=== PATIENT | male | born 1965 | race Caucasian/White ===

== ENCOUNTER 2016-03-27 03:23 | Inpatient (IN) | payer MEDICARE ==
[~2016-03-27 03:23] MED LIST: BUSP10 PO; CARV6.25 PO; CHLO10 PO; CLOP75 PO; LISI10 PO; PRAV40 PO; PROT40TA PO; SIMV20 PO; TRAZ100T4 PO; WELL150T PO
[2016-03-27 03:45] VITALS: BP 148/78; PULSE 80; RESP 16; TEMP 98.7; O2SAT 98
[2016-03-27] MEDS ORDERED: SODIUM CHLORIDE 0.9% FLUSH 5 ML FLUSH IVF PRN (03:45)
[2016-03-27 03:50] LABS: AUTOMATED NEUTROPHIL # 2.9 TH/MM3 (1.8-7.7); BASOPHIL # 0.1 TH/MM3 (0-0.2); BASOPHIL % 0.9 % (0.0-2.0); EOSINOPHIL # 0.1 TH/MM3 (0-0.4); EOSINOPHIL % 2.1 % (0.0-4.0); HEMATOCRIT 38.5 % (39.0-51.0); HEMO FLAGS DIFF FINAL; LYMPH % 33.4 % (9.0-44.0); LYMPHOCYTE # 1.8 TH/MM3 (1.0-4.8); MEAN CELL VOLUME 100.9 FL (80.0-100.0); MEAN CORPUSCULAR HEMOGLOBIN 34.8 PG (27.0-34.0); MEAN CORPUSCULAR HGB CONC 34.5 % (32.0-36.0); MONO % 10.5 % (0.0-8.0); NEUT % 53.1 % (16.0-70.0); PLATELET COUNT 204 TH/MM3 (150-450); RED BLOOD COUNT 3.82 MIL/MM3 (4.50-5.90); RED CELL DISTRIBUTION WIDTH 15.8 % (11.6-17.2); WHITE BLOOD COUNT 5.5 TH/MM3 (4.0-11.0)
[2016-03-27 04:00] VITALS: BP 148/78; PULSE 78; RESP 22; O2SAT 98
[2016-03-27 04:03] LABS: APTT (PATIENT) 23.6 SEC (24.3-30.1); INTERNATIONAL NORMALIZED RATIO 0.9 RATIO; PROTHROMBIN TIME - PATIENT 10.2 SEC (9.8-11.6)
--- NOTE | 2016-03-27 04:10 | RADRPT ---
EXAM DATE/TIME: 03/27/2016 03:48 [place] COMPARISON: CHEST SINGLE AP, March 24, 2015, 17:20. INDICATIONS : Chest pain. MEDICAL HISTORY : Cardiovascular disease. SURGICAL HISTORY : CABG. Pacemaker. ENCOUNTER: Initial ACUITY: 1 day PAIN SCORE: Non-responsive. LOCATION: Bilateral chest FINDINGS: No infiltrate, effusion or pneumothorax demonstrated. Heart size stable, upper limits of normal. Karen ent has had previous median sternotomy. Cardiac pacer/defibrillator again noted. CONCLUSION: No evidence of acute cardiopulmonary disease. Rafa Hylton MD on March 27, 2016 at 4:08 Board Certified Radiologist. This report was verified electronically.
[2016-03-27 04:33] VITALS: BP 92/84; PULSE 78; RESP 20
[2016-03-27 04:39] LABS: ALKALINE PHOSPHATASE 68 U/L (45-117); ALT (GPT) 53 U/L (12-78); ANION GAP 10 MEQ/L (5-15); AST (GOT) 72 U/L (15-37); BICARBONATE 22.1 MEQ/L (21.0-32.0); BLOOD UREA NITROGEN 9 MG/DL (7-18); CHLORIDE 110 MEQ/L (98-107); CREATINE KINASE 863 U/L (39-308); GLOMERULAR FILTRATION RATE 103 ML/MIN (>89); MAGNESIUM 2.2 MG/DL (1.5-2.5); SODIUM (NA) 142 MEQ/L (136-145); TOTAL BILIRUBIN ADULT 0.4 MG/DL (0.2-1.0)
[2016-03-27 04:44] LABS: POTASSIUM 4.3 MEQ/L (3.5-5.1)
[2016-03-27 04:56] LABS: CKMB 6.5 NG/ML (0.5-3.6)
[2016-03-27 05:00] VITALS: BP 88/51; PULSE 76; RESP 22; O2SAT 96
[2016-03-27 06:00] VITALS: BP 96/56; PULSE 76; RESP 21; O2SAT 96
[2016-03-27] MEDS ORDERED: SODIUM CHLOR 0.9% 1000 ML INJ 1,000 ML IV SCH (06:03)
[2016-03-27] MEDS ORDERED: LORazepam 1 MG TAB PO PRN (06:15)
[2016-03-27] MEDS ORDERED: LORazepam 2 MG TAB PO PRN (06:15)
[2016-03-27] MEDS ORDERED: HALOPERIDOL LACTATE 5 MG/ML AMP IM PRN (06:15)
[2016-03-27] MEDS ORDERED: ONDANSETRON HCL 4 MG/2 ML VIAL IVP PRN (06:15)
[2016-03-27] MEDS ORDERED: SODIUM CHLORIDE 0.9% FLUSH 5 ML FLUSH FLUSH PRN (06:15)
[2016-03-27] MEDS ORDERED: SODIUM CHLORIDE 0.9% FLUSH 5 ML FLUSH IV FLUSH PRN (06:15)
[2016-03-27] MEDS ORDERED: BISACODYL 10 MG SUPP PR PRN (06:15)
[2016-03-27] MEDS ORDERED: THIAMINE INJ 100 MG in SODIUM CHLORIDE 0.9% INJ 100 ML IV SCH ×5 (06:15→06:30)
[2016-03-27] MEDS ORDERED: LORazepam 2 MG/ML VIAL IV PUSH PRN ×4 (06:15)
[2016-03-27] MEDS ORDERED: MORPHINE SULFATE 4 MG/ML INJ IV PRN (06:15)
[2016-03-27] MEDS ORDERED: FLUMAZENIL 0.5 MG/5 ML VIAL IV PUSH PRN (06:15)
[2016-03-27] MEDS ORDERED: ACETAMINOPHEN/HYDROcodone 325 MG/5 MG TAB PO PRN (06:15)
[2016-03-27] MEDS ORDERED: ACETAMINOPHEN 325 MG TAB PO PRN (06:15)
[2016-03-27] MEDS ORDERED: THIAMINE INJ 100 MG in SODIUM CHLORIDE 0.9% INJ 100 ML IV ONE (06:20)
[2016-03-27 07:00] VITALS: BP 125/68; PULSE 80; RESP 24; O2SAT 97
[2016-03-27] MEDS ORDERED: MULTIVITAMIN INJ 10 ML, FOLIC ACID INJ 1 MG in SODIUM CHLORID 0.9% 500 ML INJ 500 ML IV SCH (08:00)
--- NOTE | 2016-03-27 08:44 | PD ---
HPI Chief Complaint: Chest Pain Time Seen by Provider: 03:31 Travel History International Travel<30 days: No Contact w/Intl Traveler<30days: No Traveled to known affect area: No History of Present Illness HPI Patient is a 51 year old male who comes in complaining of chest pain. He says it started around noon today. He says it is a stabbing pain to the left side of his chest. He has history of CABG, implanted defibrillator with EF of 25%. He admits to drinking today. He says he had some nausea and has vomited. He denies SOB. PFSH Past Medical History Hx Anticoagulant Therapy: Yes (PLAVIX) ADD: Yes Arthritis: No Asthma: No Blood Disorders: No Anxiety: Yes Depression: Yes Heart Rhythm Problems: Yes ( ) Cancer: No Cardiac Catheterization: Yes Cardiovascular Problems: Yes (ICD IMPLANTED 2008, CABG, STENT PLACEMENT ) High Cholesterol: Yes Chest Pain: Yes Congestive Heart Failure: No COPD: No Cerebrovascular Accident: No Coronary Artery Disease: Yes Diabetes: No Diminished Hearing: No Endocrine: No Gastrointestinal Disorders: Yes (GASTRITIS, DUODENITIS,ESOPHAGITIS) GERD: Yes Genitourinary: No Headaches: No Hepatitis: No Hypertension: Yes Immune Disorder: No Implanted Vascular Access Dvce: Yes Musculoskeletal: No Neurologic: No Psychiatric: Yes Reproductive: No Respiratory: No Immunizations Current: Yes Migraines: No Myocardial Infarction: Yes Seizures: Yes (per pt he has a seizure a year ago.) Sleep Apnea: No Thyroid Disease: No Ulcer: No Past Surgical History Appendectomy: Yes Cardiac Surgery: Yes (PACEMAKER/defib) Cholecystectomy: No Coronary Artery Bypass Graft: Yes (02/05/14) Coronary Stent: Yes (X1) Endocrine Surgery: No Eye Surgery: No Neurologic Surgery: No Pacemaker: Yes Tonsillectomy: Yes Other Surgery: Yes (appy,tonsils) Social History Alcohol Use: Yes (over a 5th everyday) Tobacco Use: Yes (2 PPD) Substance Use: No Allergies-Medications (Allergen,Severity, Reaction): Coded Allergies: Nitroglycerin (Verified Adverse Reaction, Severe, 04/22/15) PT STATES SEVERE ALLERGY... HEADACHE 01/18/2014: per order dr watt allergy status changed to adverse reaction. pt states only reaction is severe headache Reported Meds & Prescriptions Reported Meds & Active Scripts Active Librium 10 mg Cap (Chlordiazepoxide) 10 Mg Cap 10 Mg PO Q6 5 Days Wellbutrin-Sr (Bupropion HCl) 150 Mg Tabcr 300 Mg PO DAILY 30 Days Desyrel 100 Mg Tab (Trazodone Hcl) 100 Mg Tab 100 Mg PO HS Pravastatin Sodium 40 Mg Tab 40 Mg PO HS 30 Days Protonix (Pantoprazole Sodium) 40 Mg Tab 40 Mg PO DAILY 30 Days Prinivil 10 mg (Lisinopril) 10 Mg Tab 10 Mg PO DAILY 30 Days Plavix (Clopidogrel Bisulfate) 75 Mg Tab 75 Mg PO DAILY 30 Days Coreg 6.25 mg (Carvedilol) 6.25 Mg Tab 6.25 Mg PO BID 30 Days Buspar 10 mg Tab (Buspirone HCl) 10 Mg Tab 10 Mg PO Q12HR 30 Days Simvastatin 20 mg (Simvastatin) 20 Mg Tab 20 Mg PO HS Review of Systems Except as stated in HPI: all other systems reviewed are Neg General / Constitutional: No: Fever, Chills HENT: No: Headaches, Lightheadedness Cardiovascular: Positive: Chest Pain or Discomfort Respiratory: No: Shortness of Breath Gastrointestinal: Positive: Nausea, Vomiting, No: Abdominal Pain Musculoskeletal: No: Edema, Pain Skin: No Change in Pigmentation Neurologic: No: Weakness, Dizziness Physical Exam Narrative GENERAL: Awake and alert, in no acute distress, AOB SKIN: Warm and dry. HEAD: Atraumatic. Normocephalic. EYES: Pupils equal and round. No scleral icterus. ENT: Mucous membranes pink and moist. NECK: Trachea midline. No JVD. CARDIOVASCULAR: Regular rate and rhythm. RESPIRATORY: No accessory muscle use. Clear to auscultation. Breath sounds equal bilaterally. GASTROINTESTINAL: Abdomen soft, non-tender, nondistended. MUSCULOSKELETAL: Extremities without clubbing, cyanosis, or edema. No obvious deformities. NEUROLOGICAL: Awake and alert. No obvious cranial nerve deficits. Motor grossly within normal limits. Five out of 5 muscle strength in the arms and legs. Normal speech. Data Data Last Documented VS Vital Signs Date Time Temp Pulse Resp B/P Pulse Ox O2 Delivery O2 Flow Rate FiO2 03/27/16 05:00 76 22 88/51 96 03/27/16 03:45 98.7 Orders Ckmb (Isoenzyme) Profile (03/27/16 03:31) Complete Blood Count With Diff (03/27/16 03:31) Comprehensive Metabolic Panel (03/27/16 03:31) Magnesium (Mg) (03/27/16 03:31) Prothrombin Time / Inr (Pt) (03/27/16 03:31) Act Partial Throm Time (Ptt) (03/27/16 03:31) Troponin I (03/27/16 03:31) Chest, Single Ap (03/27/16 03:31) Ecg Monitoring (03/27/16 03:31) Bilateral Bp Monitoring (03/27/16 03:31) Iv Access Insert/Monitor (03/27/16 03:31) Oximetry (03/27/16 03:31) Oxygen Administration (03/27/16 03:31) Sodium Chloride 0.9% Flush (Ns Flush) (03/27/16 03:45) Alcohol (Ethanol) (03/27/16 03:31) CKMB (03/27/16 03:30) CKMB% (03/27/16 03:30) Admit Order (Ed Use Only) (03/27/16 ) Consult Cardiology (03/27/16 ) Labs Laboratory Tests Test 03/27/16 03:30 White Blood Count 5.5 TH/MM3 Red Blood Count 3.82 MIL/MM3 Hemoglobin 13.3 GM/DL Hematocrit 38.5 % Mean Corpuscular Volume 100.9 FL Mean Corpuscular Hemoglobin 34.8 PG Mean Corpuscular Hemoglobin 34.5 % Concent Red Cell Distribution Width 15.8 % Platelet Count 204 TH/MM3 Mean Platelet Volume 7.3 FL Neutrophils (%) (Auto) 53.1 % Lymphocytes (%) (Auto) 33.4 % Monocytes (%) (Auto) 10.5 % Eosinophils (%) (Auto) 2.1 % Basophils (%) (Auto) 0.9 % Neutrophils # (Auto) 2.9 TH/MM3 Lymphocytes # (Auto) 1.8 TH/MM3 Monocytes # (Auto) 0.6 TH/MM3 Eosinophils # (Auto) 0.1 TH/MM3 Basophils # (Auto) 0.1 TH/MM3 CBC Comment DIFF FINAL Differential Comment Prothrombin Time 10.2 SEC Prothromb Time International 0.9 RATIO Ratio Activated Partial 23.6 SEC Thromboplast Time Sodium Level 142 MEQ/L Potassium Level 4.3 MEQ/L Chloride Level 110 MEQ/L Carbon Dioxide Level 22.1 MEQ/L Anion Gap 10 MEQ/L Blood Urea Nitrogen 9 MG/DL Creatinine 0.79 MG/DL Estimat Glomerular Filtration 103 ML/MIN Rate Random Glucose 92 MG/DL Calcium Level 8.2 MG/DL Magnesium Level 2.2 MG/DL Total Bilirubin 0.4 MG/DL Aspartate Amino Transf 72 U/L (AST/SGOT) Alanine Aminotransferase 53 U/L (ALT/SGPT) Alkaline Phosphatase 68 U/L Total Creatine Kinase 863 U/L Creatine Kinase MB 6.5 NG/ML Creatine Kinase MB % 0.8 % Troponin I 0.07 NG/ML Total Protein 7.2 GM/DL Albumin 3.4 GM/DL Ethyl Alcohol Level 330 MG/DL [facility] Medical Decision Making Medical Screen Exam Complete: Yes Emergency Medical Condition: Yes Medical Record Reviewed: Yes Interpretation(s) ECG shows NSR, no ST elevation or depression Differential Diagnosis Intoxication vs ACS vs NSTEMI vs STEMI Narrative Course Patient is a 51 year old male who comes in intoxicated, complaining of chest pain. Exam shows patient is clearly intoxicated, no other abnormalities. IV established, patient connected to the lunchroom monitor. Labs sent show a troponin of 0.07. alcohol level is 330. Patient was given aspirin my EMS. Patient had two episodes of V-tach while in the ED. Each last about 5-10 seconds and converted to sinus rhythm without intervention. His defibrillator did not fire at the time. Heparin held for now. I spoke with Dr. Zavaleta of cardiology who agrees with the plan of holding heparin for now. Patient admitted for further management. Diagnosis Primary Impression: NSTEMI (non-ST elevated myocardial infarction) Additional Impression: Alcohol abuse Admitting Information Admitting Physician Requests: Admit Nimo Denson MD Mar 27, 2016 08:44
[2016-03-27] MEDS ORDERED: PANTOPRAZOLE SOD 40 MG DELAYED RELEASE TAB PO SCH (09:00)
[2016-03-27] MEDS ORDERED: SODIUM CHLORIDE 0.9% FLUSH 5 ML FLUSH IV FLUSH SCH (09:00)
[2016-03-27] MEDS ORDERED: LISINOPRIL 10 MG TAB PO SCH (09:00)
[2016-03-27] MEDS ORDERED: SODIUM CHLORIDE 0.9% FLUSH 5 ML FLUSH FLUSH SCH (09:00)
[2016-03-27] MEDS ORDERED: CARVEDILOL 6.25 MG TAB PO SCH (09:00)
[2016-03-27] MEDS ORDERED: ASPIRIN EC 81 MG TABEC PO SCH (09:00)
--- NOTE | 2016-03-27 13:01 | EKG ---
Date Performed: 03/27/2016 Time Performed: 03:23:40 PTAGE: 51 years EKG: Sinus rhythm MARKED LEFT AXIS DEVIATION SEPTAL MYOCARDIAL INFARCTION LATERAL MYOCARDIAL INFARCTION ABNORMAL ECG C ompared to prior tracing no significant change INTERPRETATION BASED ON A DEFAULT AGE OF 40 YEARS PREVIOUS TRACING : 04/19/2015 09.51 DOCTOR: Francis Zavaleta Interpretating Date/Time 03/27/2016 12:56:39
[2016-03-27] MEDS ORDERED: METO100T PO (16:38)
[2016-03-27] MEDS ORDERED: MOBI15TA PO (16:38)
[2016-03-27] MEDS ORDERED: AMIO200T PO (16:38)
[2016-03-27] MEDS ORDERED: ATOR10TA15 PO (16:38)
[2016-03-27] MEDS ORDERED: LISI-519 PO (16:38)
[2016-03-27] MEDS ORDERED: CLOP75TA PO (16:38)
[2016-03-27] MEDS ORDERED: TRAZ150T75 PO (16:38)
[2016-03-27] MEDS ORDERED: OMEP20TA PO (16:38)
[2016-03-27] MEDS ORDERED: PRAVASTATIN SOD 40 MG TAB PO SCH (21:00)
[2016-03-28] MEDS ORDERED: THIAMINE INJ 100 MG in SODIUM CHLORIDE 0.9% INJ 100 ML IV SCH (06:00)
[2016-03-30] MEDS ORDERED: THIAMINE HCL 100 MG TAB PO SCH (09:00)
== END 2016-03-27 08:50 | disposition left against medical advice (07) | DRG 281 ==
LOC: NEPC 03:23 → NEDA 05:52
PROVIDERS: ADMIT Hospitalist; ATTEND Hospitalist
DX: I21.4 Non-ST elevation (NSTEMI) myocardial infarction (principal); I47.2 Ventricular tachycardia; I10 Essential (primary) hypertension; I25.10 Atherosclerotic heart disease of native coronary artery without angina pectoris; F10.129 Alcohol abuse with intoxication, unspecified; I25.2 Old myocardial infarction; E78.00 Pure hypercholesterolemia, unspecified; F17.210 Nicotine dependence, cigarettes, uncomplicated; Y90.8 Blood alcohol level of 240 mg/100 ml or more; Z95.1 Presence of aortocoronary bypass graft; Z95.810 Presence of automatic (implantable) cardiac defibrillator; K21.9 Gastro-esophageal reflux disease without esophagitis
CPT/HCPCS: 71010; 80053; 80320; 82550; 82552; 83735; 84484; 85025; 85610; 85730; 93005; 99285; J2060; J2270; J3411; J7030; J7040

== ENCOUNTER 2016-03-27 16:11 | Emergency (ER) | payer MEDICARE ==
[2016-03-27 16:13] VITALS: BP 155/80; PULSE 88; RESP 20; TEMP 98; O2SAT 95
[2016-03-27] MEDS ORDERED: METO100T PO (16:38)
[2016-03-27] MEDS ORDERED: MOBI15TA PO (16:38)
[2016-03-27] MEDS ORDERED: TRAZ150T75 PO (16:38)
[2016-03-27] MEDS ORDERED: ATOR10TA15 PO (16:38)
[2016-03-27] MEDS ORDERED: LISI-519 PO (16:38)
[2016-03-27] MEDS ORDERED: AMIO200T PO (16:38)
[2016-03-27] MEDS ORDERED: CLOP75TA PO (16:38)
[2016-03-27] MEDS ORDERED: OMEP20TA PO (16:38)
[2016-03-27 16:40] VITALS: O2SAT 99
[2016-03-27] MEDS ORDERED: SODIUM CHLORIDE 0.9% FLUSH 5 ML FLUSH IVF PRN (16:45)
[2016-03-27] MEDS ORDERED: ASPIRIN 325 MG TAB PO ONE (16:45)
[2016-03-27] MEDS ORDERED: ACETAMINOPHEN 1000 MG/100 ML VIAL IV ONE (17:00)
--- NOTE | 2016-03-27 17:12 | PD ---
HPI Chief Complaint: Chest Pain Time Seen by Provider: 17:03 Travel History International Travel<30 days: No Contact w/Intl Traveler<30days: No Traveled to known affect area: No History of Present Illness HPI 51-year-old male that presents to the ED for evaluation of chest pain. Patient reports that he has chest pain since this morning. Patient actually was seen at this facility early this morning was admitted for a NSTEMI. Patient was found to have episodes of SVT as well as elevated troponin. Patient does have a history of significant heart disease including CABG and he also has an ICD defibrillator. Patient reports that the ICD device has been fired on him multiple times. The patient apparently left earlier this morning from this facility secondary to what appears to be agitation secondary to not getting food and possibly narcotics. Patient had to be escorted out of the facility as he was increasingly aggressive towards staff. Apparently patient also was drinking alcohol in the hospital room. Patient apparently went to the [facility] in [facility] and each and he went to really tell us why he came here after being seen there but it appears that he probably left AMA for similar reasons. he was brought here via [facility] and given morphine. Patient was given an aspirin today. Patient states that "i take blood thinners". Patient denies any shortness of breath. Per patient the chest pain is severe. Patient reports that the pain is 10 out of 10, sharp. When I went first into the room patient tells me that all he wants is something for pain. Pain does not radiate. Pain stays mainly on the chest. She does have an allergy to nitroglycerin. He does have a significant history of psychiatric illness including alcohol intoxication and abuse. Of note patient does appear to be very intoxicated and history somewhat limited because of this. Patient continues to request multiple times for pain medication and food and drink. PFSH Past Medical History Hx Anticoagulant Therapy: Yes (PLAVIX) ADD: Yes Arthritis: No Asthma: No Blood Disorders: No Anxiety: Yes Depression: Yes Heart Rhythm Problems: Yes ( ) Cancer: No Cardiac Catheterization: Yes Cardiovascular Problems: Yes High Cholesterol: Yes Chest Pain: Yes Congestive Heart Failure: No COPD: No Cerebrovascular Accident: No Coronary Artery Disease: Yes Diabetes: No Diminished Hearing: No Endocrine: No Gastrointestinal Disorders: Yes (GASTRITIS, DUODENITIS,ESOPHAGITIS) GERD: Yes Genitourinary: No Headaches: No Hepatitis: No Hypertension: Yes Immune Disorder: No Implanted Vascular Access Dvce: Yes Musculoskeletal: No Neurologic: No Psychiatric: Yes Reproductive: No Respiratory: No Immunizations Current: Yes Migraines: No Myocardial Infarction: Yes Seizures: Yes (per pt he has a seizure a year ago.) Sleep Apnea: No Thyroid Disease: No Ulcer: No Tetanus Vaccination: < 5 Years Past Surgical History Appendectomy: Yes Cardiac Surgery: Yes (PACEMAKER/defib) Cholecystectomy: No Coronary Artery Bypass Graft: Yes (02/05/14) Coronary Stent: Yes (X1) Endocrine Surgery: No Eye Surgery: No Neurologic Surgery: No Pacemaker: Yes Tonsillectomy: Yes Other Surgery: Yes (appy,tonsils) Social History Alcohol Use: Yes (over a 5th everyday) Tobacco Use: Yes (2 PPD) Substance Use: No Allergies-Medications (Allergen,Severity, Reaction): Coded Allergies: Nitroglycerin (Verified Adverse Reaction, Severe, 03/27/16) PT STATES SEVERE ALLERGY... HEADACHE 01/18/2014: per order dr watt allergy status changed to adverse reaction. pt states only reaction is severe headache Reported Meds & Prescriptions Reported Meds & Active Scripts Active Reported Clopidogrel (Clopidogrel Bisulfate) 75 Mg Tab 75 Mg PO DAILY Lisinopril 5 Mg Tab 5 Mg PO DAILY Amiodarone (Amiodarone HCl) 200 Mg Tab 200 Mg PO DAILY Omeprazole 20 Mg Tab 20 Mg PO DAILY Mobic (Meloxicam) 15 Mg Tab 15 Mg PO DAILY Trazodone (Trazodone HCl) 150 Mg Tab 150 Mg PO HS Atorvastatin (Atorvastatin Calcium) 10 Mg Tab 10 Mg PO HS Metoprolol Tartrate 100 Mg Tab 100 Mg PO BID Review of Systems ROS Limitations: Intoxication General / Constitutional: No: Fever, Chills, Weight Gain, Weight Loss, Other Eyes: No: Diploplia, Blurred Vision, Photophobia, Drainage, Redness, Foreign Body Sensation, Pain, Tearing, Blind Spots, Visual changes, Blindness, Other HENT: No: Headaches, Vertigo, Lightheadedness, Sore Throat, Rhinitis, Rhinorrhea, Congestion, Nosebleed, Neck Stiffness, Neck Pain, Masses, Gingival Bleeding, Dental Difficulties, Ear Discharge, Earache, Other Cardiovascular: Positive: Chest Pain or Discomfort, Palpitations, Irregular Rhythm, Tachycardia, No: Diaphoresis, Syncope, Dyspnea on exertion, Varicosities, Edema, Cyanosis, Varicosities, Phlebitis, Claudication, Other Respiratory: No: Cough, Shortness of Breath, Wheezing, Sneezing, Orthopnea, Hemoptysis, Stridor, Night Sweats, Pleuritic Pain, Other Gastrointestinal: No: Nausea, Vomiting, Diarrhea, Abdominal Pain, Hematemesis, Hematochezia, Constipation, Changes in Bowel Habits, Indigestion, Dysphagia, Loss of Appetite, Other Genitourinary: No: Urgency, Frequency, Dysuria, Nocturia, Hematuria, Decreased Urinary Output, Oliguria, Hesitancy, Dribbling, Incontinence, Pelvic Pain, Flank Pain, Dyspareunia, Discharge, Dysmenorrhea, Menorrhagia, Metorrhagia, Vaginal Bleeding, Other Musculoskeletal: No: Myalgias, Arthralgias, Limited ROM, Weakness, Cramping, Edema, Pain, Atrophy, Other Skin: No Rash, No Itching, No Dryness, No Lumps, No Hives, No Change in Pigmentation, No Change in nails, No Alopecia, No Lesions, No Breast Lumps, No Breast Tenderness, No Breast Swelling, No Other Neurologic: No: Weakness, Dizziness, Syncope, Focal Abnormalities, Coordination Problem, Tremor, Ataxia, Headache, Change in Mentation, Slurred Speech, Paresthesia, Incontinence, Seizures, Sensory Disturbance, Other Psychiatric: No: Anxiety, Depression, Suicidal Ideations, Disorder of Thought, Mood Disorder, Substance Abuse, Homicidal Ideation, Other Endocrine: No: Heat Intolerance, Cold Intolerance, Polyuria, Polydipsia, Other Physical Exam Exam Limitations: Intoxication Narrative GENERAL: SKIN: Warm and dry. HEAD: Atraumatic. Normocephalic. EYES: Pupils equal and round. No scleral icterus. No injection or drainage. ENT: No nasal bleeding or discharge. Mucous membranes pink and moist. Tongue is midline. No uvula deviation. NECK: Trachea midline. No JVD. CARDIOVASCULAR: Regular rate and rhythm. No murmurs, S3, S4. patient has surgical scars noted on the chest. RESPIRATORY: No accessory muscle use. Clear to auscultation. Breath sounds equal bilaterally. GASTROINTESTINAL: Abdomen soft, non-tender, nondistended. Hepatic and splenic margins not palpable. MUSCULOSKELETAL: Extremities without clubbing, cyanosis, or edema. No obvious deformities. Full range of motion of the upper and lower extremities bilaterally. 2+ pulses bilaterally. NEUROLOGICAL: Awake and alert. No obvious cranial nerve deficits. Motor grossly within normal limits. Five out of 5 muscle strength in the arms and legs. Normal speech. PSYCHIATRIC: Very intoxicated mood and affect; insight and judgment questionable Data Data Last Documented VS Vital Signs Date Time Temp Pulse Resp B/P Pulse Ox O2 Delivery O2 Flow Rate FiO2 03/27/16 16:40 99 03/27/16 16:40 Nasal Cannula 2 03/27/16 16:13 98.0 88 20 155/80 Orders Electrocardiogram (03/27/16 16:34) Ckmb (Isoenzyme) Profile (03/27/16 16:34) Troponin I (03/27/16 16:34) Ecg Monitoring (03/27/16 16:34) Bilateral Bp Monitoring (03/27/16 16:34) Iv Access Insert/Monitor (03/27/16 16:34) Oximetry (03/27/16 16:34) Oxygen Administration (03/27/16 16:34) Aspirin (Aspirin) (03/27/16 16:45) Sodium Chloride 0.9% Flush (Ns Flush) (03/27/16 16:45) Acetaminophen Inj (Ofirmev Inj) (03/27/16 17:00) Alcohol (Ethanol) (03/27/16 17:16) CKMB (03/27/16 16:45) CKMB% (03/27/16 16:45) Labs Laboratory Tests Test 03/27/16 16:45 Total Creatine Kinase 793 U/L Creatine Kinase MB 6.7 NG/ML Creatine Kinase MB % 0.8 % Troponin I 0.11 NG/ML MDM Medical Decision Making Medical Screen Exam Complete: Yes Emergency Medical Condition: Yes Medical Record Reviewed: Yes Differential Diagnosis NSTEMI versus STEMI versus SVT versus chest pain versus atypical chest pain versus alcohol abuse Narrative Course 51-year-old male that presents to the ED for evaluation of chest pain. Patient was properly examined by me and was found to have signs and symptoms consistent with appears to be cardiac disease. Patient was just seen here this morning and had a positive troponin and SVT episodes when he was seen. Patient left because of agitation and because he did not get any pain medication and food. Patient's first question to me was if I can give him anything for pain. Patient specifically asked for narcotics. Patient does appear very intoxicated at this time and I do not feel comfortable giving patient any narcotic pain medication to further sedate the patient. I did inform him multiple times that we need to fix his heart first. He did not appear to agree with the answer but did allow us to do the workup for the chest pain including getting an IV, EKG and blood work. Patient already had aspirin today, so this was not given. EKG and troponin was ordered. Before blood work came back I was informed by ED nursing staff that patient was found to be drinking a bottle of vodka that had to be confiscated from him by security. Unfortunately patient became more agitated and became more demanding to staff. Security had to get involved. Patient was told that we will be happy to take care of his medical complain but he has to cooperate with us. He states that he does not want to do this so he left AMA. Unfortunately patient is capable of making decisions by me and my attending Dr. Preston. Patient understands that if he leaves before being treated properly he could or have severe disability. My attending was made aware of all this and agrees that we cannot force the patient to stay. AMA: The risks of leaving against medical advice without further evaluation treatment were discussed with the patient. These risks include cardiac dysfunction, cardiac dysrhythmia, possible heart attack, possible stroke or . The patient indicated understanding of these risks and appeared to have the capacity to make this decision. Diagnosis Primary Impression: NSTEMI (non-ST elevated myocardial infarction) Additional Impression: Alcohol abuse Med/Other Pt SpecificInfo: No Meds Exist/No RX given Disposition: 07 AGAINST MEDICAL ADVICE Condition: Toribio Diaz Mar 27, 2016 17:12
[2016-03-27 17:53] LABS: CKMB 6.7 NG/ML (0.5-3.6)
== END 2016-03-27 17:38 | disposition left against medical advice (07) ==
LOC: NEPE 16:11
DX: I21.4 Non-ST elevation (NSTEMI) myocardial infarction (principal); F10.129 Alcohol abuse with intoxication, unspecified; F17.200 Nicotine dependence, unspecified, uncomplicated; I25.10 Atherosclerotic heart disease of native coronary artery without angina pectoris; I10 Essential (primary) hypertension; Y90.8 Blood alcohol level of 240 mg/100 ml or more
CPT/HCPCS: 80320; 82550; 82552; 84484; 93005

== ENCOUNTER 2016-03-27 18:18 | Inpatient (IN) | payer MEDICARE ==
[~2016-03-27] VITALS: Ht 182.9 cm; Wt 123.9 kg
[~2016-03-27 18:18] MED LIST changes: +AMIO200T PO; +ATOR10TA15 PO; +CLOP75TA PO; +LISI-519 PO; +METO100T PO; +MOBI15TA PO; +OMEP20TA PO; +TRAZ150T75 PO
[2016-03-27 18:20] VITALS: BP 117/70; PULSE 82; RESP 20; TEMP 97.6; O2SAT 95
--- NOTE | 2016-03-27 19:27 | PD ---
HPI Chief Complaint: Chest Pain Time Seen by Provider: 19:10 Travel History International Travel<30 days: No Contact w/Intl Traveler<30days: No Traveled to known affect area: No History of Present Illness HPI The patient is a 51 year old male who presents to the [facility] emergency department with a history of reportedly having chest pain that is intermittently been present since early this morning. The patient was seen in this emergency department for evaluation at approximately 3 AM. The patient was admitted to the hospital for evaluation and treatment. The patient was noted at that time to have episodes of V. tach during that evaluation. The patient's troponin I at that time was 0.07 and the patient was noted to have an alcohol level [id number]. The patient was admitted to the medical service with a consultation to Dr. Zavaleta the newspaper clipper on-call. The patient reports that he travels for work and does not have a primary care physician or newspaper clipper. He reports that he has however been taking his medication as prescribed. He reports that he took 3 baby aspirin earlier today. He reports that he also took an aspirin today. He reports that he drinks as much alcohol as he can get a hold of on a daily basis. He reports he smokes a pack of cigarettes per day. The patient reports that he last had a heart catheterization without any specific intervention approximately a year ago. The patient reports that he has a history of coronary artery disease, cardiac arrhythmia, prior stent placement, coronary artery bypass grafting of 4 vessels in 2013. This is the patient's fourth evaluation in emergency department since onset of the pain. The patient repeatedly has left this facility as well as [facility] when he gets angry and agitated as he feels like his pain is not being adequately controlled and he is not getting food and drink immediately on arrival. The patient is difficult to obtain a history from as he is repeatedly having to be redirected during his conversation to answer the questions that I am asking. The patient refuses to tell me exactly how long this episode of chest pain is been going on. The patient denies having any diarrhea. He reports that he has not been eating or drinking well as he has had episodes of vomiting since . He denies having any acid reflux symptoms. He reports that he is on omeprazole for this. When asked how many times he has been vomiting he reports "a lot". PFSH Past Medical History Narrative Medical The patient's past medical history is significant for coronary artery disease, psychiatric disorder, arthritis, attention deficit disorder, cardiac arrhythmia with AICD placement in 2008, history of hyperlipidemia, history of gastritis, duodenitis and esophagitis on prior endoscopy, hypertension, history of seizure activity in the remote past. Hx Anticoagulant Therapy: Yes ADD: Yes Arthritis: No Asthma: No Blood Disorders: No Anxiety: Yes Depression: Yes Heart Rhythm Problems: Yes ( ) Cancer: No Cardiac Catheterization: Yes Cardiovascular Problems: Yes High Cholesterol: Yes Chest Pain: Yes Congestive Heart Failure: No COPD: No Cerebrovascular Accident: No Coronary Artery Disease: Yes Diabetes: No Diminished Hearing: No Endocrine: No Gastrointestinal Disorders: Yes (GASTRITIS, DUODENITIS,ESOPHAGITIS) GERD: Yes Genitourinary: No Headaches: No Hepatitis: No Hypertension: Yes Immune Disorder: No Implanted Vascular Access Dvce: Yes Musculoskeletal: No Neurologic: No Psychiatric: Yes Reproductive: No Respiratory: No Immunizations Current: Yes Migraines: No Myocardial Infarction: Yes Seizures: Yes (per pt he has a seizure a year ago.) Sleep Apnea: No Thyroid Disease: No Ulcer: No Tetanus Vaccination: < 5 Years Past Surgical History Narrative Surgical The patient's past surgical history is significant for pacemaker/defibrillator placement 2008, coronary artery bypass grafting of 4 vessels on February 05, 2014, history of coronary artery stenting times one, appendectomy, tonsillectomy. Appendectomy: Yes Cardiac Surgery: Yes (PACEMAKER/defib) Cholecystectomy: No Coronary Artery Bypass Graft: Yes (02/05/14) Coronary Stent: Yes (X1) Endocrine Surgery: No Eye Surgery: No Neurologic Surgery: No Pacemaker: Yes Tonsillectomy: Yes Other Surgery: Yes (appy,tonsils) Social History Alcohol Use: Yes (over a 5th everyday) Tobacco Use: Yes (2 PPD) Substance Use: No Allergies-Medications (Allergen,Severity, Reaction): Coded Allergies: Nitroglycerin (Verified Adverse Reaction, Severe, headache, 03/27/16) PT STATES SEVERE ALLERGY... HEADACHE 01/18/2014: per order dr watt allergy status changed to adverse reaction. pt states only reaction is severe headache Reported Meds & Prescriptions Reported Meds & Active Scripts Active Reported Clopidogrel (Clopidogrel Bisulfate) 75 Mg Tab 75 Mg PO DAILY Lisinopril 5 Mg Tab 5 Mg PO DAILY Amiodarone (Amiodarone HCl) 200 Mg Tab 200 Mg PO DAILY Omeprazole 20 Mg Tab 20 Mg PO DAILY Mobic (Meloxicam) 15 Mg Tab 15 Mg PO DAILY Trazodone (Trazodone HCl) 150 Mg Tab 150 Mg PO HS Atorvastatin (Atorvastatin Calcium) 10 Mg Tab 10 Mg PO HS Metoprolol Tartrate 100 Mg Tab 100 Mg PO BID Review of Systems Except as stated in HPI: all other systems reviewed are Neg General / Constitutional: No: Fever Eyes: No: Visual changes HENT: No: Headaches, Rhinorrhea, Congestion Cardiovascular: Positive: Chest Pain or Discomfort, Dyspnea on exertion Respiratory: Positive: Cough (chronic smokers related cough), Shortness of Breath Gastrointestinal: Positive: Nausea, Vomiting, No: Diarrhea, Abdominal Pain, Indigestion, Loss of Appetite Genitourinary: No: Dysuria Musculoskeletal: No: Pain Skin: No Rash Neurologic: No: Weakness, Focal Abnormalities, Coordination Problem, Change in Mentation, Slurred Speech, Sensory Disturbance Psychiatric: Positive: Anxiety, Depression, Mood Disorder, Substance Abuse, No : Suicidal Ideations, Homicidal Ideation Endocrine: No: Polydipsia Hematologic/Lymphatic: No: Easy Bruising Physical Exam Narrative General: The patient is a well-developed well-nourished male in no acute distress with a strong odor of tobacco about him. Head and Neck exam: Head is normocephalic atraumatic. Eyes: EOMI, pupils are equal round and reactive to light. Nose: Midline septum with pink mucous membranes Mouth: Dentition unremarkable. Moist mucus membranes. Posterior oropharynx is not erythematous. No tonsillar hypertrophy. Uvula midline. Airway patent. Neck: No palpable lymphadenopathy. No nuchal rigidity. No thyromegaly. Cardiovascular: Regular rate and rhythm without murmurs, gallops, or rubs. No pulse deficit to the extremities times simultaneous auscultation and palpation of his radial artery. Lungs: Clear to auscultation bilaterally. No wheezes, rhonchi, or rales. Abdomen: Soft, without tenderness to palpation in all 4 quadrants of the abdomen. No guarding, rebound, or rigidity. Normal bowel sounds are audible. No tenderness on palpation of McBurney's point. Negative Cameron sign. Extremities: No clubbing or cyanosis. The patient has trace edema bilateral lower extremities. 2+ pulses in all 4 extremities. No calf tenderness on palpation. Back: No costovertebral angle tenderness to palpation. Neurologic Exam: Grossly nonfocal Skin Exam: No rash noted. Intact skin that is warm and dry. Data Data Last Documented VS Vital Signs Date Time Temp Pulse Resp B/P Pulse Ox O2 Delivery O2 Flow Rate FiO2 03/27/16 18:46 79 18 03/27/16 18:20 97.6 117/70 95 Room Air Orders Electrocardiogram (03/27/16 19:40) Acetaminophen (Tylenol) (03/27/16 19:45) Admit Order (Ed Use Only) (03/27/16 19:53) MDM Medical Decision Making Medical Screen Exam Complete: Yes Emergency Medical Condition: Yes Medical Record Reviewed: Yes Differential Diagnosis Acute coronary syndrome, versus cardiac arrhythmia, versus congestive heart failure, versus COPD, versus pleurisy, versus acid reflux Narrative Course During the course of the patients emergency department visit, the patients history, examination, and differential diagnosis were reviewed with the patient. The patient had IV access obtained and blood work sent for analysis. The patient was placed on a telecommunications professional with oximetry and blood pressure monitoring. The patient had an EKG done earlier today at 1640 which did show a sinus rhythm with a heart rate of 81, Q waves were noted to be new in the inferior leads in 2, 3, aVF with T wave inversions in 2, 3, aVF no ST segment elevation is noted. The patient will have a repeat EKG done at this time. Repeat EKG done during this evaluation was done at 1953, shows a sinus rhythm, marked left axis deviation, T waves are inverted in lead 1, aVL, no acute ST segment elevation or depression is noted. The patient reports having an allergy to nitroglycerin in which she develops swelling of his lips, tongue, and shortness of breath. The patient reports that he did take aspirin 3-81 mg tablets earlier today. The patients laboratory studies were reviewed and remarkable for blood work done at 3 AM that reveals an initial CPK of 863, CK-MB percent 0.8, troponin I 0.07, repeat labs done at 1644 reveals a CPK of 793, 0.8 CK-MB, 0.11 troponin I. The patient will be do to have a third set of cardiac enzymes done on his 6 hour schedule at 10:45 PM. Radiology studies were reviewed and remarkable for a chest x-ray done at approximately 3:30 AM today that showed no acute abnormality as read by the reading radiologist. The patients results were discussed with the patient, including the plan of care. I explained that further testing and/ or monitoring is indicated based on the patients history, examination, and/ or laboratory findings. Therefore, I recommended admission for additional evaluation. The patient expressed understanding and was agreeable with this plan. The patient was admitted to the hospital in guarded condition and [facility] Phys[facility] Communication Physician Communication The patient's case is discussed with Dr. Zimmer, who did agree to admit the patient for further evaluation and treatment at this time. Diagnosis Primary Impression: Non-STEMI (non-ST elevated myocardial infarction) Additional Impression: Ventricular tachycardia, nonsustained Admitting Information Admitting Physician Requests: Admit Nicole Linton MD Mar 27, 2016 19:27 Nicole Linton MD Mar 27, 2016 19:27
[2016-03-27] MEDS ORDERED: ACETAMINOPHEN 325 MG TAB PO ONE (19:45)
[2016-03-27] MEDS ORDERED: SODIUM CHLOR 0.9% 1000 ML INJ 1,000 ML IV ONE (20:00)
[2016-03-27] MEDS ORDERED: SODIUM CHLORIDE 0.9% FLUSH 5 ML FLUSH IV FLUSH PRN (20:00)
[2016-03-27] MEDS ORDERED: ACETAMINOPHEN 325 MG TAB PO PRN (20:00)
[2016-03-27] MEDS ORDERED: HALOPERIDOL LACTATE 5 MG/ML AMP IM PRN (20:00)
[2016-03-27] MEDS ORDERED: SODIUM CHLORIDE 0.9% FLUSH 5 ML FLUSH FLUSH PRN (20:00)
[2016-03-27] MEDS ORDERED: ONDANSETRON HCL 4 MG/2 ML VIAL IVP PRN (20:00)
[2016-03-27] MEDS ORDERED: LORazepam 2 MG TAB PO PRN (20:00)
[2016-03-27] MEDS ORDERED: FLUMAZENIL 0.5 MG/5 ML VIAL IV PUSH PRN (20:00)
[2016-03-27] MEDS ORDERED: LORazepam 1 MG TAB PO PRN (20:00)
[2016-03-27] MEDS ORDERED: BISACODYL 10 MG SUPP PR PRN (20:00)
[2016-03-27] MEDS ORDERED: LORazepam 2 MG/ML VIAL IV PUSH PRN (20:00)
--- NOTE | 2016-03-27 20:15 | HHI.HP ---
HPI Service [facility] Primary Care Physician No Primary Care Physician Admission Diagnosis NonSTEMI, Episodic VT Diagnoses: (1) NSTEMI (non-ST elevated myocardial infarction) Diagnosis: Principal (2) Ventricular tachycardia, nonsustained Diagnosis: Principal (3) Alcohol abuse Diagnosis: Principal (4) Depression Diagnosis: Principal (5) Non-compliance Diagnosis: Principal (6) Tobacco abuse Diagnosis: Principal Travel History International Travel<30 Days: No Contact w/Intl Traveler <30 Da: No Traveled to Known Affected Are: No History of Present Illness This is a 51-year-old male with a PMH of CAD, Ischemic Cardiomyopathy w/ EF 25% , s/p AICD ([employer]), Alcohol Abuse, Tobacco Abuse and Non-compliance who presented to the ER for c/o chest pain. This is his 3rd ER visit in the last 18hrs for similar complaints. On his first visit, pt was noted to have episode of Non-sustained Vtach, Trop 0.07. Dr. Zavaleta consulted w/ plans for admission and further evaluation. Pt however became extremely agitated and combative as he wasn't getting food or narcotics fast enough, ultimately Left AMA. Presented to [facility] ([place], [place]) after leaving here, but Left AMA for same reasons. Was evaluated again in the ER a 2nd time w/ plans for admission, Trop 0.11, however pt was found to be drinking Vodka in his room and became agitated/ combative when he was told to stop, Left AMA again. Returns now for ongoing chest pain. Few episodes of SVT while in ER, no subsequent VTach. Device unable to be interrogated as of yet as pt has Left AMA multiple times. Trop now 0.11. Remains intoxicated. s/p Tylenol w/ minimal improvement in pain complaints. Review of Systems Except as stated in HPI: all other systems reviewed are Neg ROS: 14 point review of systems otherwise negative. Past Family Social History Past Medical History PMH: CAD, Ischemic Cardiomyopathy w/ EF 25%, s/p AICD ([employer]), Alcohol Abuse, Tobacco Abuse and Non-compliance Past Surgical History PAST SURGICAL HISTORY: AICD, Appendectomy, CABG, Tonsillectomy Allergies: Coded Allergies: Nitroglycerin (Verified Adverse Reaction, Severe, headache, 03/27/16) PT STATES SEVERE ALLERGY... HEADACHE 01/18/2014: per order dr watt allergy status changed to adverse reaction. pt states only reaction is severe headache Family History PAST FAMILY HISTORY: Reviewed. No h/o DM or CAD Social History PAST SOCIAL HISTORY: Drinks 1/5th of Vodka daily. Smokes 2ppd. Negative for drugs. Physical Exam Vital Signs Vital Signs Date Time Temp Pulse Resp B/P Pulse Ox O2 Delivery O2 Flow Rate FiO2 03/27/16 18:46 79 18 03/27/16 18:20 97.6 82 20 117/70 95 Room Air Physical Exam PE: GENERAL: Middle-aged white male in no acute distress, acutely intoxicated, seen ambulating [id number] from bathroom. HEENT: PERRLA, EOMI. No scleral icterus or conjunctival pallor. No lid lag or facial droop. CARDIOVASCULAR: Regular rate and rhythm. No obvious murmurs to auscultation. No chest tenderness to palpation. RESPIRATORY: No obvious rhonchi or wheezing. Clear to auscultation. Breath sounds equal bilaterally. GASTROINTESTINAL: Abdomen soft, non-tender, nondistended. BS normal. MUSCULOSKELETAL: Extremities without clubbing, cyanosis, or edema. No obvious deformities. NEUROLOGICAL: Awake, alert and oriented x4. No focal neurologic deficits. Moving both upper and lower extremities spontaneously. Assessment and Plan Problem List: (1) NSTEMI (non-ST elevated myocardial infarction) ICD Code: I21.4 Status: Acute (2) Ventricular tachycardia, nonsustained ICD Code: I47.2 Status: Acute (3) Alcohol abuse ICD Code: F10.10 Status: Acute (4) Non-compliance ICD Code: Z91.19 Status: Acute (5) Tobacco abuse ICD Code: Z72.0 Status: Acute (6) Depression ICD Code: F32.9 Status: Chronic Assessment and Plan A/P: 1. NSTEMI: h/o CAD s/p CABG, Ischemic Cardiomyopathy w/ EF 25%, Trop 0.07 on initial visit, Left AMA, Trop 0.11 on 2nd presentation, now Trop 0.11. EKG w/ T wave inversions, no acute ST changes. Admit to [facility], telemetry, consult Cardiology, check serial enzymes. Issue w/ anticoagulation in light of acute alcohol intoxication, will hold off on Heparin for now. Ativan prn for chest pain. Resume home Plavix, Statin. 2. VTach: episode of Non-sustained Vtach earlier this morning, no recurrence. Episode of SVT while in ER, now resolved. Electrolytes normal. Continue Amiodarone and Metoprolol. Interrogate AICD ([place]) 3. Non-Compliance: 3rd ER presentation to [place] in last 18hrs, has become agitated/combative, found to be drinking Vodka in room ultimately Left AMA each time, states he is agreeable to admission this time. 4. Alcohol Abuse: w/ Acute Alcohol Intoxication, found to be drinking in room earlier today. Seizure Precautions, CIWA, MVT/Thiamine/Folate replacement. 5. Tobacco Abuse: Counselled. Ativan prn. No NicoDerm to avoid vasoconstriction. 6. DVT Prophylaxis: SCD/teds. 7. Social work for DC planning as needed. 8. Case discussed at length with ER physician. Physician Certification 2 Midnight Certification Type: Admission for Inpatient Services Order for Inpatient Services The services are ordered in accordance with Medicare regulations or non- Medicare payer requirements, as applicable. In the case of services not specified as inpatient-only, they are appropriately provided as inpatient services in accordance with the 2-midnight benchmark. Estimated LOS (days): 2 days is the estimated time the patient will need to remain in the hospital, assuming treatment plan goals are met and no additional complications. Post-Hospital Plan: Not yet determined Ruby Zimmer MD Mar 27, 2016 20:15
[2016-03-27] MEDS: LORazepam 2 MG/ML VIAL IV PUSH PRN ×2 (20:24→23:36)
[2016-03-27] MEDS ORDERED: SODIUM CHLORIDE 0.9% FLUSH 5 ML FLUSH IV FLUSH SCH (21:00)
[2016-03-27] MEDS: traZODone HCL 50 MG TAB PO SCH (21:00)
[2016-03-27] MEDS: THIAMINE INJ 100 MG in SODIUM CHLORIDE 0.9% INJ 100 ML IV SCH (22:32)
[2016-03-27] MEDS: ATORVASTATIN 10 MG TAB PO SCH (22:32)
[2016-03-27] MEDS: METOPROLOL TARTRATE 100 MG TAB PO SCH (22:32)
[2016-03-27] MEDS: SODIUM CHLORIDE 0.9% FLUSH 5 ML FLUSH FLUSH SCH (22:32)
[2016-03-27 22:38] VITALS: BP 130/77; PULSE 79; RESP 16; O2SAT 99
[2016-03-27] MEDS: MULTIVITAMIN INJ 10 ML, FOLIC ACID INJ 1 MG in SODIUM CHLORID 0.9% 500 ML INJ 500 ML IV SCH (23:22)
[2016-03-27 23:38] VITALS: BP 135/54; PULSE 86; RESP 18; TEMP 98.2; O2SAT 97
[2016-03-28] VITALS (14 sets, daily range): BP systolic 113–152; BP diastolic 72–88; PULSE 68–82; RESP 16–22; TEMP 97.8–98.4; O2SAT 95–98
[2016-03-28] MEDS: LORazepam 2 MG/ML VIAL IV PUSH PRN ×9 (00:22→23:42)
[2016-03-28] MEDS: PANTOPRAZOLE SOD 20 MG DELAYED RELEASE TAB PO SCH (08:31)
[2016-03-28] MEDS: AMIODARONE 200 MG TAB PO SCH (08:31)
[2016-03-28] MEDS: SODIUM CHLORIDE 0.9% FLUSH 5 ML FLUSH FLUSH SCH ×2 (08:31→20:20)
[2016-03-28] MEDS: CLOPIDOGREL 75 MG TAB PO SCH (08:31)
[2016-03-28] MEDS: ASPIRIN EC 81 MG TABEC PO SCH (08:31)
[2016-03-28] MEDS: PRAVASTATIN SOD 40 MG TAB PO SCH (08:31)
[2016-03-28] MEDS: METOPROLOL TARTRATE 100 MG TAB PO SCH ×2 (08:31→20:20)
[2016-03-28 09:06] LABS: AUTOMATED NEUTROPHIL # 2.4 TH/MM3 (1.8-7.7); BASOPHIL % 0.7 % (0.0-2.0); EOSINOPHIL # 0.1 TH/MM3 (0-0.4); EOSINOPHIL % 2.6 % (0.0-4.0); HEMATOCRIT 35.4 % (39.0-51.0); HEMO FLAGS DIFF FINAL; LYMPH % 32.3 % (9.0-44.0); LYMPHOCYTE # 1.5 TH/MM3 (1.0-4.8); MEAN CORPUSCULAR HEMOGLOBIN 34.5 PG (27.0-34.0); MEAN CORPUSCULAR HGB CONC 34.5 % (32.0-36.0); MONO % 14.2 % (0.0-8.0); NEUT % 50.2 % (16.0-70.0); PLATELET COUNT 176 TH/MM3 (150-450); RED BLOOD COUNT 3.54 MIL/MM3 (4.50-5.90); RED CELL DISTRIBUTION WIDTH 15.5 % (11.6-17.2); WHITE BLOOD COUNT 4.7 TH/MM3 (4.0-11.0)
[2016-03-28 09:46] LABS: ALKALINE PHOSPHATASE 60 U/L (45-117); ALT (GPT) 47 U/L (12-78); ANION GAP 9 MEQ/L (5-15); AST (GOT) 60 U/L (15-37); BICARBONATE 25.4 MEQ/L (21.0-32.0); BLOOD UREA NITROGEN 13 MG/DL (7-18); CHLORIDE 107 MEQ/L (98-107); GLOMERULAR FILTRATION RATE 112 ML/MIN (>89); SODIUM (NA) 141 MEQ/L (136-145); TOTAL BILIRUBIN ADULT 0.6 MG/DL (0.2-1.0)
[2016-03-28] MEDS: MORPHINE SULFATE 4 MG/ML INJ IV PRN ×4 (10:54→23:42)
--- NOTE | 2016-03-28 11:58 | MB ---
cc: SARA BENSON M.D. DATE OF CONSULTATION 03/28/2016 REASON FOR CONSULTATION Evaluation of chest pain. HISTORY OF PRESENT ILLNESS Rafa Gardner is a 51-year-old man admitted with acute alcohol intoxication and chest pain. He is extremely noncompliant. He has left AMA more than once before. He has had multiple admissions for alcohol intoxication and chest pain. He travels throughout the country and has not consistent followup with any physicians. He used to see Dr. Sarkar but has not followed up with him in [place]. He had a cath on October 02, 2013, showing an ejection fraction of 20%, 80% left main disease and total occlusion of the LAD and circumflex vessels. He had a four-vessel bypass apparently in [place] in January 2014. He has a defibrillator; I do not know what type. He does not have regular followup. He came in with an alcohol level of over 300. He complains of chest pain and is asking for narcotics. 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 He got angry with me while I was in the room but did consent to me doing a physical exam. PAST HISTORY 1. Ischemic cardiomyopathy. 2. Previous defibrillator [employer]. 3. Alcohol and tobacco abuse. 4. Noncompliance. PAST SURGICAL HISTORY 1. Appendectomy, 2. Bypass surgery. 3. Tonsillectomy. 4. Defibrillator. ALLERGIES He apparently has had an ADVERSE REACTION TO NITRO with headaches but not truly allergic to it. FAMILY HISTORY Negative for heart disease. SOCIAL HISTORY Drinks a quart of vodka per day. Smokes two packs per day. PHYSICAL EXAMINATION GENERAL: A large middle-aged man who is slightly agitated. VITAL SIGNS: Charted. HEENT EXAM/NECK: No JVD, no bruits. CHEST: Clear to auscultation. CARDIAC EXAM: S1, S2. Regular rate and rhythm. ABDOMEN: Soft, nontender. EXTREMITIES: No clubbing, cyanosis or edema. Pulses are intact. EKGs Demonstrate sinus rhythm, progression consistent with an old anterior infarct, nonspecific ST-abnormalities. LABORATORIES Alcohol level was 330 at 03:30 a.m. yesterday. In April 2015 alcohol level was 218. In November 2014 the alcohol level was 337. In January 2014 the alcohol level was 332. In September 2013 was 277. In February 2013 was 234. In May of 2008 323. In October 2007 was 204. His creatinine is 0.73. Troponins are fairly flat 0.07, 0.11, 0.11, 0.11. These are not conclusive. Hematocrit 34.5. IMPRESSION This is a 51-year-old severe alcoholic with known severe heart disease. He continues to be noncompliant. RECOMMENDATIONS I do not think it is safe to do a cath on him. He is likely go into DT's this admission. Will probably keep observing him for now. Continue his antianginal therapy. We will try to work on getting him help but he showed no sign of respecting his health or trying to get help at this point. Further therapy be determined to Sara Benson MD VEW/SSB /11:04 AM /11:39 AM
[2016-03-28 12:39] LABS: P2Y12 REACTION UNITS (PRU) 199 PRU (194-418)
--- NOTE | 2016-03-28 15:52 | HHI.PR ---
Subjective Remarks Follow-up for chest pain Still with occasional chest pain but better. Also anxious, actively withdrawing. No nausea or vomiting. Not short of breath. Objective Vitals Vital Signs Date Time Temp Pulse Resp B/P Pulse Ox O2 Delivery O2 Flow Rate FiO2 03/28/16 15:40 20 03/28/16 15:00 68 03/28/16 14:00 78 03/28/16 13:00 76 03/28/16 12:00 75 03/28/16 11:00 76 03/28/16 11:00 98.2 81 16 140/83 96 03/28/16 10:00 78 03/28/16 09:00 74 03/28/16 08:00 82 03/28/16 08:00 97.8 74 22 121/75 95 03/28/16 07:00 76 03/28/16 03:00 98.4 77 16 113/76 98 03/27/16 23:38 98.2 86 18 135/54 97 03/27/16 22:38 79 16 130/77 99 03/27/16 18:46 79 18 03/27/16 18:20 97.6 82 20 117/70 95 Room Air I/O 03/27/16 03/27/16 03/27/16 03/28/16 03/28/16 03/28/16 07:00 15:00 23:00 07:00 15:00 23:00 Intake Total 1220 ml Balance 1220 ml Intake Oral 720 ml IV Total 500 ml # Voids 2 # Bowel Movements 0 Result Diagram: 03/28/1682103/28/16821 Objective Remarks GENERAL: Not in distress HEENT: PERRLA, EOMI. No scleral icterus or conjunctival pallor. CARDIOVASCULAR: Regular rate and rhythm. No obvious murmurs to auscultation. No chest tenderness to palpation. RESPIRATORY: No obvious rhonchi or wheezing. Clear to auscultation. GASTROINTESTINAL: Abdomen soft, non-tender, nondistended. BS normal. MUSCULOSKELETAL: Extremities without clubbing, cyanosis, or edema. No obvious deformities. NEUROLOGICAL: Awake, alert and oriented x4. No focal neurologic deficits. Moving both upper and lower extremities spontaneously. Tremors present A/P Problem List: (1) NSTEMI (non-ST elevated myocardial infarction) ICD Code: I21.4 Status: Acute (2) Ventricular tachycardia, nonsustained ICD Code: I47.2 Status: Acute (3) Alcohol abuse ICD Code: F10.10 Status: Acute (4) Non-compliance ICD Code: Z91.19 Status: Acute (5) Tobacco abuse ICD Code: Z72.0 Status: Acute (6) Depression ICD Code: F32.9 Status: Chronic Assessment and Plan 1. NSTEMI: h/o CAD s/p CABG, Ischemic Cardiomyopathy w/ EF 25%, Trop 0.07 on initial visit, Left AMA, Trop 0.11 on 2nd presentation, now Trop 0.11. EKG w/ T wave inversions, no acute ST changes. Ativan prn for chest pain. Resume home Plavix, Statin. Cardiology saw the patient, cleared the patient for catheterization the patient is actively withdrawing from alcohol, continue antianginals for now. Roe. 2. VTach: episode of Non-sustained Vtach earlier this morning, no recurrence. Episode of SVT while in ER, now resolved. Electrolytes normal. Continue Amiodarone and Metoprolol. Interrogate AICD ([employer]) 3. Non-Compliance: 3rd ER presentation to [place] in last 18hrs, has become agitated/combative, found to be drinking Vodka in room ultimately Left AMA each time, states he is agreeable to admission this time. 4. Alcohol Abuse: w/ Acute Alcohol Intoxication, found to be drinking in room earlier today. Seizure Precautions, CIWA, MVT/Thiamine/Folate replacement. Counseled. 5. Tobacco Abuse: Counselled. Ativan prn. No NicoDerm to avoid vasoconstriction. 6. DVT Prophylaxis: SCD/teds. Caitlin Mejía MD Mar 28, 2016 15:52
[2016-03-28] MEDS ORDERED: oxyCODONE/ACETAMINOPHEN 5 MG/325 MG TAB PO PRN (16:00)
[2016-03-28] MEDS ORDERED: ACETAMINOPHEN 325 MG TAB PO PRN (16:00)
[2016-03-28] MEDS ORDERED: NALOXONE HCL 0.4 MG/ML AMP IV PRN (16:00)
[2016-03-28] MEDS: oxyCODONE/ACETAMINOPHEN 10 MG/325 MG TAB PO PRN (16:01)
[2016-03-28] MEDS: NICOTINE 21 MG/24 HR PATCH TD SCH (18:06)
[2016-03-28] MEDS: THIAMINE INJ 100 MG in SODIUM CHLORIDE 0.9% INJ 100 ML IV SCH (20:20)
[2016-03-28] MEDS: ATORVASTATIN 10 MG TAB PO SCH (20:20)
[2016-03-28] MEDS: MULTIVITAMIN INJ 10 ML, FOLIC ACID INJ 1 MG in SODIUM CHLORID 0.9% 500 ML INJ 500 ML IV SCH (20:20)
[2016-03-28] MEDS: traZODone HCL 50 MG TAB PO SCH (20:20)
[2016-03-28] MEDS ORDERED: REMOVE OLD PATCH TD SCH (21:00)
[2016-03-29] VITALS: BP 143/92; PULSE 71; RESP 18; TEMP 98.6; O2SAT 98
[2016-03-29] MEDS: LORazepam 2 MG/ML VIAL IV PUSH PRN ×7 (00:21→10:20)
[2016-03-29] MEDS: MORPHINE SULFATE 4 MG/ML INJ IV PRN ×2 (03:37→08:26)
[2016-03-29 04:00] VITALS: BP 92/46; PULSE 70; RESP 18; TEMP 98.8; O2SAT 97
[2016-03-29] MEDS: oxyCODONE/ACETAMINOPHEN 10 MG/325 MG TAB PO PRN (06:16)
[2016-03-29] MEDS: AMIODARONE 200 MG TAB PO SCH (08:26)
[2016-03-29] MEDS: PANTOPRAZOLE SOD 20 MG DELAYED RELEASE TAB PO SCH (08:26)
[2016-03-29] MEDS: CLOPIDOGREL 75 MG TAB PO SCH (08:26)
[2016-03-29] MEDS: ASPIRIN EC 81 MG TABEC PO SCH (08:26)
[2016-03-29] MEDS: PRAVASTATIN SOD 40 MG TAB PO SCH (08:26)
[2016-03-29] MEDS: METOPROLOL TARTRATE 100 MG TAB PO SCH (08:26)
[2016-03-29] MEDS: SODIUM CHLORIDE 0.9% FLUSH 5 ML FLUSH FLUSH SCH (08:26)
[2016-03-29 08:35] VITALS: BP 158/100; PULSE 84; PULSE 88; RESP 18; TEMP 98; O2SAT 96
[2016-03-29] MEDS: NICOTINE 21 MG/24 HR PATCH TD SCH (08:37)
[2016-03-29 08:40] VITALS: RESP 18
--- NOTE | 2016-03-29 09:28 | PD.CARD.PN ---
Subjective Subjective Remarks Occas chest/ leftneck pain Objective Medications Current Medications Medications (Trade) Dose Ordered Sig/Brea Route Start Time Stop Time Status Last Admin Lorazepam 1 mg 1 mg Q2H PRN IV PUSH 03/27/16 20:00 03/28/16 05:20 Multivitamins 10 ml/Folic Acid 1 mg/Sodium Chloride 510.2 ml @ 125 mls/hr Q24H IV 03/27/16 21:00 04/01/16 20:59 03/28/16 20:20 (Thiamine Inj/NS Inj) 101 ml @ 100 mls/hr Q24H IV 03/27/16 21:00 03/30/16 20:59 03/28/16 20:20 (Vitamin B1) 100 mg DAILY PO 03/31/16 09:00 (Romazicon Inj) 0.2 mg Q1M PRN IV PUSH 03/27/16 20:00 (Ativan) 1 mg Q4H PRN PO 03/27/16 20:00 (Ativan Inj) 1 mg Q4H PRN IV PUSH 03/27/16 20:00 (Ativan) 2 mg Q2H PRN PO 03/27/16 20:00 (Ativan Inj) 2 mg Q2H PRN IV PUSH 03/27/16 20:00 03/29/16 03:37 (Ativan Inj) 2 mg Q1H PRN IV PUSH 03/27/16 20:00 03/29/16 08:25 (Ativan Inj) 2 mg Q15M PRN IV PUSH 03/27/16 20:00 03/29/16 04:05 (Haldol Inj) 2 mg Q15M PRN IM 03/27/16 20:00 (NS Flush) 2 ml UNSCH PRN FLUSH 03/27/16 20:00 03/29/16 08:27 (NS Flush) 2 ml BID FLUSH 03/27/16 21:00 03/29/16 08:26 (Zofran Inj) 4 mg Q6H PRN IVP 03/27/16 20:00 (Dulcolax Supp) 10 mg DAILY PRN [place] 03/27/16 20:00 (Ecotrin Ec) 81 mg DAILY PO 03/28/16 09:00 03/29/16 08:26 (Pravachol) 40 mg DAILY PO 03/28/16 09:00 03/29/16 08:26 (Cordarone) 200 mg DAILY PO 03/28/16 09:00 03/29/16 08:26 (Lipitor) 10 mg HS PO 03/27/16 21:00 03/28/16 20:20 (Plavix) 75 mg DAILY PO 03/28/16 09:00 03/29/16 08:26 (Lopressor) 100 mg BID PO 03/27/16 21:00 03/29/16 08:26 (Protonix) 20 mg DAILY PO 03/28/16 09:00 03/29/16 08:26 (Desyrel) 150 mg HS PO 03/27/16 21:00 03/28/16 20:20 (Morphine Inj) 4 mg Q4H PRN IV 03/28/16 10:15 03/29/16 08:26 (Tylenol) 650 mg Q6H PRN PO 03/28/16 16:00 (Percocet 5-325 Mg) 1 tab Q6H PRN PO 03/28/16 16:00 03/29/16 00:06 (Percocet 10-325 Mg) 1 tab Q6H PRN PO 03/28/16 16:00 03/29/16 06:16 (Narcan Inj) 0.4 mg UNSCH PRN IV 03/28/16 16:00 Miscellaneous Information 1 HS TD 03/28/16 21:00 03/28/16 20:20 Vital Signs / I&O Vital Signs Date Time Temp Pulse Resp B/P Pulse Ox O2 Delivery O2 Flow Rate FiO2 03/29/16 08:40 18 03/29/16 08:40 18 03/29/16 04:00 70 03/29/16 04:00 98.8 70 18 92/46 97 03/29/16 00:00 71 03/29/16 00:00 98.6 71 18 143/92 98 03/28/16 20:00 98.4 82 16 152/88 96 03/28/16 20:00 82 03/28/16 18:00 72 03/28/16 17:00 68 03/28/16 16:00 71 03/28/16 16:00 98.1 73 18 118/72 96 03/28/16 15:00 68 03/28/16 14:00 78 03/28/16 13:00 76 03/28/16 12:00 75 03/28/16 11:00 76 03/28/16 11:00 98.2 81 16 140/83 96 03/28/16 10:00 78 I/O 03/28/16 03/28/16 03/28/16 03/29/16 03/29/16 03/29/16 07:00 15:00 23:00 07:00 15:00 23:00 Intake Total 1220 ml 1060 ml 1160 ml Output Total 400 ml Balance 1220 ml 660 ml 1160 ml Intake Oral 720 ml 1060 ml 960 ml IV Total 500 ml 200 ml Output Urine Total 400 ml # Voids 2 2 3 # Bowel Movements 0 1 0 Physical Exam GENERAL: Well developed, well nourished. No acute distress. HEENT: Jugular venous pressure is normal. CHEST: Lungs clear to auscultation bilaterally. Unlabored respiratory effort. CARDIAC: Regular rate and rhythm without S3, S4, or murmur. ABDOMEN: Soft, nontender, no hepatosplenomegaly. Bowel sounds present. EXTREMITIES: No clubbing, cyanosis, or edema. Laboratory Laboratory Tests Test 03/28/16 03/29/16 11:33 04:55 Platelet Function P2Y12 React 199 PRU Units Troponin I 0.11 NG/ML Assessment and Plan Problem List: (1) Troponin level elevated Assessment and Plan: troponin curves is flat, not typical of [place] (2) Coronary artery disease Assessment and Plan: Libby SPECT ordered (3) Cardiomyopathy Assessment and Plan: Ischemia/HTN/alcohol related (4) Alcohol withdrawal Enrrique Linton MD Mar 29, 2016 09:28
[2016-03-29] MEDS ORDERED: LISINOPRIL 10 MG TAB PO SCH (10:00)
--- NOTE | 2016-03-29 13:12 | HHI.PR ---
Subjective Remarks Late entry: Patient trying to difficult again today Follow for chest pain Patient still having chest pain on the left side, radiating to the left neck. I told him he needs to do a stress test but does not want to do that and instead was to get a cardiac catheterization. I told him that the stress test will determine the need for cardiac catheterization. He then insinuated that he might want to leave AGAINST MEDICAL ADVICE. Not short of breath, tremors are better. I told him that it might not be safe given his episodes of V. tach and chest pain. He to finish workup to determine what's going on. Objective Vitals Vital Signs Date Time Temp Pulse Resp B/P Pulse Ox O2 Delivery O2 Flow Rate FiO2 03/29/16 08:40 18 03/29/16 08:40 18 03/29/16 08:35 98.0 84 18 158/100 96 03/29/16 08:35 88 03/29/16 04:00 70 03/29/16 04:00 98.8 70 18 92/46 97 03/29/16 00:00 71 03/29/16 00:00 98.6 71 18 143/92 98 03/28/16 20:00 98.4 82 16 152/88 96 03/28/16 20:00 82 03/28/16 18:00 72 03/28/16 17:00 68 03/28/16 16:00 71 03/28/16 16:00 98.1 73 18 118/72 96 03/28/16 15:00 68 03/28/16 14:00 78 I/O 03/28/16 03/28/16 03/28/16 03/29/16 03/29/16 03/29/16 07:00 15:00 23:00 07:00 15:00 23:00 Intake Total 1220 ml 1060 ml 1160 ml Output Total 400 ml Balance 1220 ml 660 ml 1160 ml Intake Oral 720 ml 1060 ml 960 ml IV Total 500 ml 200 ml Output Urine Total 400 ml # Voids 2 2 3 # Bowel Movements 0 1 0 Result Diagram: 03/28/1682103/28/16821 Objective Remarks GENERAL: Not in distress HEENT: PERRLA, EOMI. No scleral icterus or conjunctival pallor. CARDIOVASCULAR: Regular rate and rhythm. No obvious murmurs to auscultation. Mild chest tenderness to palpation. RESPIRATORY: No obvious rhonchi or wheezing. Clear to auscultation. GASTROINTESTINAL: Abdomen soft, non-tender, nondistended. BS normal. MUSCULOSKELETAL: Extremities without clubbing, cyanosis, or edema. No obvious deformities. NEUROLOGICAL: Awake, alert and oriented x4. No focal neurologic deficits. Moving both upper and lower extremities spontaneously. Tremors present but better A/P Problem List: (1) NSTEMI (non-ST elevated myocardial infarction) ICD Code: I21.4 Status: Acute (2) Ventricular tachycardia, nonsustained ICD Code: I47.2 Status: Acute (3) Alcohol abuse ICD Code: F10.10 Status: Acute (4) Non-compliance ICD Code: Z91.19 Status: Acute (5) Tobacco abuse ICD Code: Z72.0 Status: Acute (6) Depression ICD Code: F32.9 Status: Chronic Assessment and Plan 1. NSTEMI: h/o CAD s/p CABG, Ischemic Cardiomyopathy w/ EF 25%, Trop 0.07 on initial visit, Left AMA, Trop 0.11 on 2nd presentation, now Trop 0.11. EKG w/ T wave inversions, no acute ST changes. Ativan prn for chest pain. Resume home Plavix, Statin. Cardiology saw the patient, he is actively withdrawing from alcohol, continue antianginals for now. Lexiscan per cardiology. Patient however does not want another stress test. 2. VTach: episode of Non-sustained Vtach earlier this morning, no recurrence. Episode of SVT while in ER, now resolved. Electrolytes normal. Continue Amiodarone and Metoprolol. 3. Non-Compliance: 3rd ER presentation to [facility] in last 18hrs, has become agitated/combative, found to be drinking Vodka in room ultimately Left AMA each time, patient now thinking of leaving AMA again. 4. Alcohol Abuse: w/ Acute Alcohol Intoxication, found to be drinking in room earlier today. Seizure Precautions, CIWA, MVT/Thiamine/Folate replacement. Counseled. 5. Tobacco Abuse: Counselled. Ativan prn. No NicoDerm to avoid vasoconstriction. 6. DVT Prophylaxis: SCD/teds. Caitlin Mejía MD Mar 29, 2016 13:12
== END 2016-03-29 11:59 | disposition left against medical advice (07) | DRG 281 ==
LOC: NEPE 18:18 → NEDA 19:55 → HCIS 23:32
PROVIDERS: ADMIT Hospitalist; ATTEND Hospitalist
DX: I21.4 Non-ST elevation (NSTEMI) myocardial infarction (principal); I47.2 Ventricular tachycardia; F10.239 Alcohol dependence with withdrawal, unspecified; I47.1 Supraventricular tachycardia; F32.9 Major depressive disorder, single episode, unspecified; Z91.19 Patient's noncompliance with other medical treatment and regimen; I25.10 Atherosclerotic heart disease of native coronary artery without angina pectoris; F17.210 Nicotine dependence, cigarettes, uncomplicated; E78.5 Hyperlipidemia, unspecified; I25.5 Ischemic cardiomyopathy; Z95.810 Presence of automatic (implantable) cardiac defibrillator; F10.229 Alcohol dependence with intoxication, unspecified; I10 Essential (primary) hypertension; Z95.1 Presence of aortocoronary bypass graft; I25.2 Old myocardial infarction; K21.9 Gastro-esophageal reflux disease without esophagitis; Z95.5 Presence of coronary angioplasty implant and graft; Y90.8 Blood alcohol level of 240 mg/100 ml or more
CPT/HCPCS: 80053; 80320; 82550; 82552; 82948; 84484; 85025; 85576; 93005; 99285; J2060; J2270; J3411; J7030; J7040

== ENCOUNTER 2016-03-30 10:41 | Observation (INO) | payer MEDICARE ==
[~2016-03-30] VITALS: Ht 180.3 cm; Wt 120.0 kg
[~2016-03-30 10:41] MED LIST changes: -BUSP10 PO; -CARV6.25 PO; -CHLO10 PO; -CLOP75 PO; -LISI10 PO; -PRAV40 PO; -PROT40TA PO; -SIMV20 PO; -TRAZ100T4 PO; -WELL150T PO
[2016-03-30 11:34] VITALS: BP 131/76; PULSE 71; RESP 20; O2SAT 100
--- NOTE | 2016-03-30 11:41 | PD ---
HPI Chief Complaint: chest pain Time Seen by Provider: 11:32 Travel History International Travel<30 days: No Contact w/Intl Traveler<30days: No Traveled to known affect area: No History of Present Illness HPI 51-year-old male with history of extensive cardiac history, CAD, stents, tachycardia dysrhythmia, pacemaker, alcoholism, previously admitted several days ago here, left AMA and went to [facility], returned here yesterday, and then left AMA again for chest pains. He comes from [facility] brought in by EMS after having left AMA from there, complaining of 9 out of 10 substernal left-sided chest pains. He denies any coughing, fevers, vomiting, or any other symptoms. He complains of the same chest pains. According to patient's previous nurse, patient had demanded opiate pain medications for his chest pains. He according to previous hospitalist note had wanted to get a catheterization done and refused to get stress testing done. Left AGAINST MEDICAL ADVICE due to his disagreement with the doctor. Modifying Factors: None Associated Signs & Symptoms: None Risk Factors: None PFSH Past Medical History Hx Anticoagulant Therapy: Yes ADD: Yes Arthritis: No Asthma: No Blood Disorders: No Anxiety: Yes Depression: Yes Heart Rhythm Problems: Yes ( ) Cancer: No Cardiac Catheterization: Yes Cardiovascular Problems: Yes High Cholesterol: Yes Chest Pain: Yes Congestive Heart Failure: No COPD: No Cerebrovascular Accident: No Coronary Artery Disease: Yes Diabetes: No Diminished Hearing: No Endocrine: No Gastrointestinal Disorders: Yes (GASTRITIS, DUODENITIS,ESOPHAGITIS) GERD: Yes Genitourinary: No Headaches: No Hepatitis: No Hypertension: Yes Immune Disorder: No Implanted Vascular Access Dvce: Yes Musculoskeletal: No Neurologic: No Psychiatric: Yes Reproductive: No Respiratory: No Immunizations Current: Yes Migraines: No Myocardial Infarction: Yes Seizures: Yes (per pt he has a seizure a year ago.) Sleep Apnea: No Thyroid Disease: No Ulcer: No Past Surgical History Appendectomy: Yes Cardiac Surgery: Yes (PACEMAKER/defib) Cholecystectomy: No Coronary Artery Bypass Graft: Yes (02/05/14) Coronary Stent: Yes (X1) Endocrine Surgery: No Eye Surgery: No Neurologic Surgery: No Pacemaker: Yes Tonsillectomy: Yes Other Surgery: Yes (appy,tonsils) Social History Alcohol Use: Yes (over a 5th everyday) Tobacco Use: Yes (2 PPD) Substance Use: No Allergies-Medications (Allergen,Severity, Reaction): Coded Allergies: Nitroglycerin (Verified Adverse Reaction, Severe, headache, 03/27/16) PT STATES SEVERE ALLERGY... HEADACHE 01/18/2014: per order dr watt allergy status changed to adverse reaction. pt states only reaction is severe headache Reported Meds & Prescriptions Reported Meds & Active Scripts Active Reported Clopidogrel (Clopidogrel Bisulfate) 75 Mg Tab 75 Mg PO DAILY Lisinopril 5 Mg Tab 5 Mg PO DAILY Amiodarone (Amiodarone HCl) 200 Mg Tab 200 Mg PO DAILY Omeprazole 20 Mg Tab 20 Mg PO DAILY Mobic (Meloxicam) 15 Mg Tab 15 Mg PO DAILY Trazodone (Trazodone HCl) 150 Mg Tab 150 Mg PO HS Atorvastatin (Atorvastatin Calcium) 10 Mg Tab 10 Mg PO HS Metoprolol Tartrate 100 Mg Tab 100 Mg PO BID Review of Systems Except as stated in HPI: all other systems reviewed are Neg Physical Exam Narrative GENERAL: Well-nourished, well-developed middle age white male patient in no acute distress at rest. Awake and oriented 3. SKIN: Warm and dry. HEAD: Normocephalic. EYES: No scleral icterus. No injection or drainage. NECK: Supple, trachea midline. No JVD or lymphadenopathy. CARDIOVASCULAR: Regular rate and rhythm without murmurs, gallops, or rubs. Pulses are present and equal bilaterally. RESPIRATORY: Breath sounds equal bilaterally. No accessory muscle use. GASTROINTESTINAL: Abdomen soft, non-tender, nondistended. BACK: Nontender without obvious deformity. No CVA tenderness. EXTREMITIES: No clubbing, cyanosis, or edema. No joint tenderness, effusion, or edema noted. No calf tenderness. Bilateral Homans sign negative. Data Data Last Documented VS Vital Signs Date Time Temp Pulse Resp B/P Pulse Ox O2 Delivery O2 Flow Rate FiO2 03/30/16 11:34 71 20 131/76 100 Orders Electrocardiogram (03/30/16 11:32) Ckmb (Isoenzyme) Profile (03/30/16 11:32) Complete Blood Count With Diff (03/30/16 11:32) Comprehensive Metabolic Panel (03/30/16 11:32) Magnesium (Mg) (03/30/16 11:32) Prothrombin Time / Inr (Pt) (03/30/16 11:32) Act Partial Throm Time (Ptt) (03/30/16 11:32) Troponin I (03/30/16 11:32) Lipase (03/30/16 11:32) Chest, Single Ap (03/30/16 11:32) Ecg Monitoring (03/30/16 11:32) Bilateral Bp Monitoring (03/30/16 11:32) Iv Access Insert/Monitor (03/30/16 11:32) Oximetry (03/30/16 11:32) Oxygen Administration (03/30/16 11:32) Sodium Chloride 0.9% Flush (Ns Flush) (03/30/16 11:45) CKMB (03/30/16 11:35) CKMB% (03/30/16 11:35) Labs Laboratory Tests Test 03/30/16 11:35 White Blood Count 3.7 TH/MM3 Red Blood Count 3.72 MIL/MM3 Hemoglobin 12.8 GM/DL Hematocrit 37.3 % Mean Corpuscular Volume 100.2 FL Mean Corpuscular Hemoglobin 34.4 PG Mean Corpuscular Hemoglobin 34.4 % Concent Red Cell Distribution Width 15.6 % Platelet Count 176 TH/MM3 Mean Platelet Volume 7.2 FL Neutrophils (%) (Auto) 45.0 % Lymphocytes (%) (Auto) 36.7 % Monocytes (%) (Auto) 12.9 % Eosinophils (%) (Auto) 4.7 % Basophils (%) (Auto) 0.7 % Neutrophils # (Auto) 1.7 TH/MM3 Lymphocytes # (Auto) 1.3 TH/MM3 Monocytes # (Auto) 0.5 TH/MM3 Eosinophils # (Auto) 0.2 TH/MM3 Basophils # (Auto) 0.0 TH/MM3 CBC Comment DIFF FINAL Differential Comment Prothrombin Time 10.2 SEC Prothromb Time International 0.9 RATIO Ratio Activated Partial 26.1 SEC Thromboplast Time Sodium Level 143 MEQ/L Potassium Level 3.5 MEQ/L Chloride Level 108 MEQ/L Carbon Dioxide Level 22.1 MEQ/L Anion Gap 13 MEQ/L Blood Urea Nitrogen 7 MG/DL Creatinine 0.86 MG/DL Estimat Glomerular Filtration 93 ML/MIN Rate Random Glucose 81 MG/DL Calcium Level 8.2 MG/DL Magnesium Level 2.0 MG/DL Total Bilirubin 0.6 MG/DL Aspartate Amino Transf 63 U/L (AST/SGOT) Alanine Aminotransferase 47 U/L (ALT/SGPT) Alkaline Phosphatase 60 U/L Total Creatine Kinase 800 U/L Creatine Kinase MB 4.3 NG/ML Creatine Kinase MB % 0.5 % Troponin I 0.09 NG/ML Total Protein 6.6 GM/DL Albumin 3.3 GM/DL Lipase 97 U/L MDM Medical Decision Making Medical Screen Exam Complete: Yes Emergency Medical Condition: Yes Medical Record Reviewed: Yes Interpretation(s) EKG shows sinus rhythm at a rate of 77 bpm with a LVH pattern. No signs of acute ST-T changes. Laboratory Tests Test 03/30/16 11:35 White Blood Count 3.7 TH/MM3 (4.0-11.0) Red Blood Count 3.72 MIL/MM3 (4.50-5.90) Hemoglobin 12.8 GM/DL (13.0-17.0) Hematocrit 37.3 % (39.0-51.0) Mean Corpuscular Volume 100.2 FL (80.0-100.0) Mean Corpuscular Hemoglobin 34.4 PG (27.0-34.0) Monocytes (%) (Auto) 12.9 % (0.0-8.0) Eosinophils (%) (Auto) 4.7 % (0.0-4.0) Neutrophils # (Auto) 1.7 TH/MM3 (1.8-7.7) Chloride Level 108 MEQ/L (98-107) Calcium Level 8.2 MG/DL (8.5-10.1) Aspartate Amino Transf 63 U/L (15-37) (AST/SGOT) Total Creatine Kinase 800 U/L (39-308) Creatine Kinase MB 4.3 NG/ML (0.5-3.6) Troponin I 0.09 NG/ML (0.02-0.05) Albumin 3.3 GM/DL (3.4-5.0) Last 24 hours Impressions Chest X-Ray 03/30/16 1132 Signed Impressions: Service Date/Time: Wednesday, March 30, 2016 11:43 - CONCLUSION: 1. Cardiomegaly with previous CABG. 2. Left-sided defibrillator. Denzel Shields MD Differential Diagnosis Chest painsACS versus dysrhythmias versus pneumonia versus malingering Narrative Course Cardiac enzymes are still elevated. EKG did not show any signs of acute changes. At this point, this is a bounce back and the case was discussed with Dr. Payne of [facility] hospitalist service for readmission. He is agreeing to get a stress test done at this time. Diagnosis Primary Impression: Troponin level elevated Additional Impression: Chest pain Admitting Information Admitting Physician Requests: it Tabby Stewart MD Mar 30, 2016 11:41
[2016-03-30] MEDS ORDERED: SODIUM CHLORIDE 0.9% FLUSH 5 ML FLUSH IVF PRN (11:45)
[2016-03-30 12:10] LABS: AUTOMATED NEUTROPHIL # 1.7 TH/MM3 (1.8-7.7); BASOPHIL % 0.7 % (0.0-2.0); EOSINOPHIL # 0.2 TH/MM3 (0-0.4); EOSINOPHIL % 4.7 % (0.0-4.0); HEMATOCRIT 37.3 % (39.0-51.0); HEMO FLAGS DIFF FINAL; LYMPH % 36.7 % (9.0-44.0); LYMPHOCYTE # 1.3 TH/MM3 (1.0-4.8); MEAN CELL VOLUME 100.2 FL (80.0-100.0); MEAN CORPUSCULAR HEMOGLOBIN 34.4 PG (27.0-34.0); MEAN CORPUSCULAR HGB CONC 34.4 % (32.0-36.0); MONO % 12.9 % (0.0-8.0); PLATELET COUNT 176 TH/MM3 (150-450); RED BLOOD COUNT 3.72 MIL/MM3 (4.50-5.90); RED CELL DISTRIBUTION WIDTH 15.6 % (11.6-17.2); WHITE BLOOD COUNT 3.7 TH/MM3 (4.0-11.0)
[2016-03-30 12:22] LABS: APTT (PATIENT) 26.1 SEC (24.3-30.1); INTERNATIONAL NORMALIZED RATIO 0.9 RATIO; PROTHROMBIN TIME - PATIENT 10.2 SEC (9.8-11.6)
--- NOTE | 2016-03-30 12:26 | RADRPT ---
EXAM DATE/TIME: 03/30/2016 11:43 [facility] COMPARISON: CHEST SINGLE AP, March 27, 2016, 3:48. INDICATIONS : Chest pain. MEDICAL HISTORY : Cardiovascular disease. SURGICAL HISTORY : Pacemaker. CABG. ENCOUNTER: Initial ACUITY: 1 day PAIN SCORE: Non-responsive. LOCATION: Bilateral chest FINDINGS: A single view of the chest demonstrates cardiomegaly with evidence of previous CABG. Left-sided defib rillator with 2 intact leads.The cardiomediastinal contours are unremarkable. Osseous structures are intact. CONCLUSION: 1. Cardiomegaly with previous CABG. 2. Left-sided defibrillator. Denzel Shields MD on March 30, 2016 at 12:24 Board Certified Radiologist. This report was verified electronically.
[2016-03-30 12:28] LABS: ANION GAP 13 MEQ/L (5-15); AST (GOT) 63 U/L (15-37); BICARBONATE 22.1 MEQ/L (21.0-32.0); BLOOD UREA NITROGEN 7 MG/DL (7-18); CHLORIDE 108 MEQ/L (98-107); GLOMERULAR FILTRATION RATE 93 ML/MIN (>89); POTASSIUM 3.5 MEQ/L (3.5-5.1); SODIUM (NA) 143 MEQ/L (136-145)
[2016-03-30 12:33] LABS: ALKALINE PHOSPHATASE 60 U/L (45-117); ALT (GPT) 47 U/L (12-78); CREATINE KINASE 800 U/L (39-308); TOTAL BILIRUBIN ADULT 0.6 MG/DL (0.2-1.0)
[2016-03-30 12:45] LABS: CKMB 4.3 NG/ML (0.5-3.6)
[2016-03-30] MEDS ORDERED: SODIUM CHLOR 0.9% 1000 ML INJ 1,000 ML IV SCH (13:01)
[2016-03-30] MEDS ORDERED: SODIUM CHLORIDE 0.9% FLUSH 5 ML FLUSH FLUSH PRN (13:15)
[2016-03-30] MEDS ORDERED: ONDANSETRON HCL 4 MG/2 ML VIAL IVP PRN (13:15)
[2016-03-30] MEDS ORDERED: NALOXONE HCL 0.4 MG/ML AMP IV PRN (13:15)
[2016-03-30] MEDS ORDERED: BISACODYL 10 MG SUPP PR PRN (13:15)
[2016-03-30] MEDS ORDERED: ACETAMINOPHEN 325 MG TAB PO PRN (13:15)
[2016-03-30] MEDS ORDERED: MAGNESIUM HYDROXIDE SUSP 30 ML CUP PO PRN (13:15)
[2016-03-30 13:47] VITALS: O2SAT 95
--- NOTE | 2016-03-30 16:58 | HHI.HP ---
[facility] No Primary Care Physician Admission Diagnosis chest pain Diagnoses: Chief Complaint: Chest pain Travel History International Travel<30 Days: No Contact w/Intl Traveler <30 Da: No Traveled to Known Affected Are: No History of Present Illness 51-year-old male with past medical history of CAD, CHF, alcohol abuse, GERD, depression, HTN, HLD who presented with chest pain. The patient has left this hospital AGAINST MEDICAL ADVICE as well as [facility] this week when admitted for similar complaints. He states he's been having constant chest pain for more than 5 days now. He states the pain is dull over the defibrillator on his left chest wall. He states he is having referred sharp jaw pain. The pain the first partially down his left arm as well. He states the pain is worse with activity and is relieved with rest. He has associated nausea and sweats. He states that he lost his medications yesterday, prior to that he was compliant with them. He does drink a significant amount of alcohol daily, and is interested in quitting. He states that he is currently homeless. He was previously in [place] last month, admitted there at [facility], where he states he had a normal stress test done. He declines another stress test since he just had one done. He states he gets facial swelling with nitroglycerin. Review of Systems Except as stated in HPI: all other systems reviewed are Neg Past Family Social History Past Medical History Coronary artery disease Chronic systolic congestive heart failure Alcohol abuse GERD Depression Hypertension Hyperlipidemia Arthritis Past Surgical History AICD/pacemaker placement Appendectomy CABG Tonsillectomy Right knee surgery Reported Medications Lisinopril 5 Mg Tab 5 Mg PO DAILY Amiodarone (Amiodarone HCl) 200 Mg Tab 200 Mg PO DAILY Omeprazole 20 Mg Tab 20 Mg PO DAILY Mobic (Meloxicam) 15 Mg Tab 15 Mg PO DAILY Trazodone (Trazodone HCl) 150 Mg Tab 150 Mg PO HS Atorvastatin (Atorvastatin Calcium) 10 Mg Tab 10 Mg PO HS Metoprolol Tartrate 100 Mg Tab 100 Mg PO BID Allergies: Coded Allergies: Nitroglycerin (Verified Adverse Reaction, Severe, headache, 03/27/16) PT STATES SEVERE ALLERGY... HEADACHE 01/18/2014: per order dr watt allergy status changed to adverse reaction. pt states only reaction is severe headache Active Ordered Medications Current Medications Medications (Trade) Dose Ordered Sig/Brea Route Start Time Stop Time Status Last Admin (NS Flush) 2 ml UNSCH PRN FLUSH 03/30/16 13:15 (NS Flush) 2 ml BID FLUSH 03/30/16 21:00 (Tylenol) 650 mg Q4H PRN PO 03/30/16 13:15 (Zofran Inj) 4 mg Q6H PRN IVP 03/30/16 13:15 (Dulcolax Supp) 10 mg DAILY PRN [place] 03/30/16 13:15 (Milk Of Magnesia Liq) 30 ml Q12H PRN PO 03/30/16 13:15 (Lovenox Inj) 40 mg Q24H SQ 03/30/16 14:00 03/30/16 17:08 (Narcan Inj) 0.4 mg UNSCH PRN IV 03/30/16 13:15 (Cordarone) 200 mg DAILY PO 03/31/16 09:00 (Lipitor) 10 mg HS PO 03/30/16 21:00 UNV (Plavix) 75 mg DAILY PO 03/31/16 09:00 UNV (Prinivil) 5 mg DAILY PO 03/31/16 09:00 UNV (Lopressor) 100 mg BID PO 03/30/16 21:00 UNV (Protonix) 20 mg DAILY PO 03/31/16 09:00 UNV (Desyrel) 150 mg HS PO 03/30/16 21:00 UNV (Norvasc) 5 mg DAILY PO 03/31/16 09:00 UNV (Folate) 1 mg DAILY PO 03/31/16 09:00 04/05/16 08:59 UNV (Vitamin B1) 100 mg DAILY PO 03/31/16 09:00 UNV (Theragran M Tab) 1 tab DAILY PO 03/31/16 09:00 04/05/16 08:59 UNV (Catapres) 0.1 mg Q6H PRN PO 03/30/16 17:00 (Romazicon Inj) 0.2 mg Q1M PRN IV PUSH 03/30/16 17:00 UNV (Ativan) 1 mg Q4H PRN PO 03/30/16 17:00 (Ativan) 2 mg Q2H PRN PO 03/30/16 17:00 (Ativan Inj) 2 mg Q1H PRN IV PUSH 03/30/16 17:00 (Ativan Inj) 2 mg Q15M PRN IV PUSH 03/30/16 17:00 (Haldol Inj) 2 mg Q15M PRN IM 03/30/16 17:00 UNV Family History Father of heart disease Mother of cancer Sr. has heart disease Brother of cirrhosis Social History Drinks between a quart and a half a gallon of liquor daily, last drink yesterday Smokes one pack per day Homeless Physical Exam Vital Signs Vital Signs Date Time Temp Pulse Resp B/P Pulse Ox O2 Delivery O2 Flow Rate FiO2 03/30/16 13:47 95 21 03/30/16 11:34 71 20 131/76 100 Physical Exam GENERAL: Well-developed well-nourished unkempt. In no acute distress. Ambulating. SKIN: Warm and dry. No lesions noted. HEENT: Normocephalic. Pupils equal and round. Mucous membranes pink and moist. CARDIOVASCULAR: Regular rate and rhythm. No murmur appreciated. RESPIRATORY: No accessory muscle use. Clear to auscultation. Breath sounds equal bilaterally. GASTROINTESTINAL: Abdomen soft, non-tender, nondistended. Bowel sounds x4. MUSCULOSKELETAL: No obvious deformities. No clubbing or cyanosis. No edema. NEUROLOGICAL: Awake and alert. No focal neurological deficits. Moves upper and lower extremities spontaneously. Normal speech. Mild fine tremors. PSYCHIATRIC: Appropriate mood and affect; insight and judgment normal. Laboratory Laboratory Tests Test 03/30/16 11:35 White Blood Count 3.7 Red Blood Count 3.72 Hemoglobin 12.8 Hematocrit 37.3 Mean Corpuscular Volume 100.2 Mean Corpuscular Hemoglobin 34.4 Mean Corpuscular Hemoglobin 34.4 Concent Red Cell Distribution Width 15.6 Platelet Count 176 Mean Platelet Volume 7.2 Neutrophils (%) (Auto) 45.0 Lymphocytes (%) (Auto) 36.7 Monocytes (%) (Auto) 12.9 Eosinophils (%) (Auto) 4.7 Basophils (%) (Auto) 0.7 Neutrophils # (Auto) 1.7 Lymphocytes # (Auto) 1.3 Monocytes # (Auto) 0.5 Eosinophils # (Auto) 0.2 Basophils # (Auto) 0.0 CBC Comment DIFF FINAL Differential Comment Prothrombin Time 10.2 Prothromb Time International 0.9 Ratio Activated Partial 26.1 Thromboplast Time Sodium Level 143 Potassium Level 3.5 Chloride Level 108 Carbon Dioxide Level 22.1 Anion Gap 13 Blood Urea Nitrogen 7 Creatinine 0.86 Estimat Glomerular Filtration 93 Rate Random Glucose 81 Calcium Level 8.2 Magnesium Level 2.0 Total Bilirubin 0.6 Aspartate Amino Transf 63 (AST/SGOT) Alanine Aminotransferase 47 (ALT/SGPT) Alkaline Phosphatase 60 Total Creatine Kinase 800 Creatine Kinase MB 4.3 Creatine Kinase MB % 0.5 Troponin I 0.09 Total Protein 6.6 Albumin 3.3 Lipase 97 Result Diagram: 03/30/16 1135 03/30/16 1135 Imaging Last Impressions Chest X-Ray 03/30/16 1132 Signed Impressions: Service Date/Time: Wednesday, March 30, 2016 11:43 - CONCLUSION: 1. Cardiomegaly with previous CABG. 2. Left-sided defibrillator. Denzel Shields MD Assessment and Plan Assessment and Plan 51-year-old male with past medical history of CAD, CHF, alcohol abuse, GERD, depression, HTN, HLD who presented with chest pain Atypical chest pain with history of CAD: Troponin minimally elevated at 0.09, previously 0.11 on 03/29/16. Possibly minimally elevated secondary to CHF, but will need to trend cardiac enzymes to rule out ACS. Doubt true ACS with constant chest pain lasting more than 5 days. Check echocardiogram. Obtain results of recent stress test, if unable to obtain results we'll proceed with repeat stress testing tomorrow afternoon. Cardiology consult if indicated. If ACS is ruled out and stress test is negative, ideally the patient needs optimization of antianginal therapy, cannot take nitroglycerin. Continue metoprolol and statin. Add amlodipine. Morphine as needed. Continue aspirin and Plavix. Chronic systolic heart failure: EF 20% on catheterization in 2013. S/P AICD placement. Continue metoprolol and lisinopril. History of NSVT: S/P pacemaker placement. Continue amiodarone and metoprolol. Alcohol abuse: Patient counseled. Requesting Librium, will schedule low-dose. CIWA protocol. Rally pack. emergency medical service manager consult for outpatient resources for detox. Tobacco abuse: Patient counseled. DVT prophylaxis: SCDs GI prophylaxis: PPI Written by Parmjit Lara, acting as scribe for Dr. Payne on 03/30/16 at 16:57. The documentation accurately reflects the work performed [id number] by me on at 16:57. Discussed Condition With Patient, ED RN Parmjit Lara Mar 30, 2016 16:57 Kamilla Payne DO Mar 30, 2016 23:07
[2016-03-30] MEDS ORDERED: LORazepam 2 MG TAB PO PRN (17:00)
[2016-03-30] MEDS ORDERED: LORazepam 1 MG TAB PO PRN (17:00)
[2016-03-30] MEDS ORDERED: cloNIDine HCL 0.1 MG TAB PO PRN (17:00)
[2016-03-30] MEDS ORDERED: FLUMAZENIL 0.5 MG/5 ML VIAL IV PUSH PRN (17:00)
[2016-03-30] MEDS ORDERED: LORazepam 2 MG/ML VIAL IV PUSH PRN ×2 (17:00)
[2016-03-30] MEDS ORDERED: HALOPERIDOL LACTATE 5 MG/ML AMP IM PRN (17:00)
[2016-03-30 17:04] VITALS: BP 132/77; PULSE 92; RESP 20; O2SAT 98
[2016-03-30] MEDS: ENOXAPARIN SODIUM 40 MG/0.4 ML SYRINGE SQ SCH (17:08)
[2016-03-30 19:05] VITALS: BP 125/91; PULSE 95; RESP 18; O2SAT 95
[2016-03-30] MEDS: MORPHINE SULFATE 4 MG/ML INJ IV PUSH PRN (19:07)
[2016-03-30] MEDS ORDERED: POTASSIUM CHLORIDE 20 MEQ CONTROLLED RELEASE TAB PO ONE (20:15)
[2016-03-30 21:17] VITALS: BP 141/86; PULSE 82; RESP 20; O2SAT 97
[2016-03-30] MEDS: SODIUM CHLORIDE 0.9% FLUSH 5 ML FLUSH FLUSH SCH (21:19)
[2016-03-30] MEDS: ATORVASTATIN 10 MG TAB PO SCH (21:20)
[2016-03-30] MEDS: METOPROLOL TARTRATE 100 MG TAB PO SCH (21:20)
[2016-03-30] MEDS: traZODone HCL 50 MG TAB PO SCH (21:20)
[2016-03-31] VITALS (9 sets, daily range): BP systolic 108–153; BP diastolic 63–84; PULSE 63–72; RESP 14–18; TEMP 97.3–98.1; O2SAT 91–99
[2016-03-31] MEDS: MORPHINE SULFATE 4 MG/ML INJ IV PUSH PRN ×4 (01:15→18:55)
[2016-03-31 01:31] LABS: CKMB 2.9 NG/ML (0.5-3.6)
[2016-03-31 05:24] LABS: AUTOMATED NEUTROPHIL # 2.6 TH/MM3 (1.8-7.7); BASOPHIL # 0.1 TH/MM3 (0-0.2); EOSINOPHIL # 0.2 TH/MM3 (0-0.4); EOSINOPHIL % 4.6 % (0.0-4.0); HEMATOCRIT 39.2 % (39.0-51.0); HEMO FLAGS DIFF FINAL; LYMPH % 30.3 % (9.0-44.0); LYMPHOCYTE # 1.5 TH/MM3 (1.0-4.8); MEAN CELL VOLUME 99.6 FL (80.0-100.0); MEAN CORPUSCULAR HEMOGLOBIN 34.9 PG (27.0-34.0); MONO % 12.2 % (0.0-8.0); NEUT % 51.9 % (16.0-70.0); PLATELET COUNT 179 TH/MM3 (150-450); RED BLOOD COUNT 3.93 MIL/MM3 (4.50-5.90); RED CELL DISTRIBUTION WIDTH 15.1 % (11.6-17.2); WHITE BLOOD COUNT 4.9 TH/MM3 (4.0-11.0)
[2016-03-31 05:47] LABS: BICARBONATE 23.8 MEQ/L (21.0-32.0); POTASSIUM 4.1 MEQ/L (3.5-5.1)
--- NOTE | 2016-03-31 08:37 | EKG ---
Date Performed: 03/30/2016 Time Performed: 23:42:37 PTAGE: 51 years EKG: Sinus rhythm MARKED LEFT AXIS DEVIATION LATERAL MYOCARDIAL INFARCTION ABNORMAL ECG PREVIOUS TRACING : 03/30/2016 11.35 DOCTOR: Pedro Ramos Interpretating Date/Time 03/31/2016 08:34:40
[2016-03-31] MEDS ORDERED: THIAMINE HCL 100 MG TAB PO SCH (09:00)
[2016-03-31] MEDS ORDERED: LISINOPRIL 5 MG TAB PO SCH (09:00)
[2016-03-31] MEDS ORDERED: CLOPIDOGREL 75 MG TAB PO SCH (09:00)
[2016-03-31] MEDS ORDERED: AMIODARONE 200 MG TAB PO SCH (09:00)
[2016-03-31] MEDS ORDERED: MULTIVITAMINS/MINERALS THERAPEUTIC TAB PO SCH (09:00)
[2016-03-31] MEDS ORDERED: amLODIPine BESYLATE 5 MG TAB PO SCH (09:00)
[2016-03-31] MEDS ORDERED: PANTOPRAZOLE SOD 20 MG DELAYED RELEASE TAB PO SCH (09:00)
[2016-03-31] MEDS ORDERED: FOLIC ACID 1 MG TAB PO SCH (09:00)
[2016-03-31] MEDS: SODIUM CHLORIDE 0.9% FLUSH 5 ML FLUSH FLUSH SCH ×2 (09:37→18:58)
[2016-03-31] MEDS: METOPROLOL TARTRATE 100 MG TAB PO SCH ×2 (09:38→18:56)
--- NOTE | 2016-03-31 10:44 | HHI.PR ---
Subjective Remarks Follow up for chest pain and NSVT. Continues to complain of chest and jaw pain , unchanged. Yesterday had 30 sec run of NSVT. Device interrogated, quality assurance representative recommended settings be adjusted but patient refuses. Does not currently follow with cardiology. He states he does feel palpitations when his heart becomes tachycardic, however denies any nausea, vomiting, sweating, lightheadedness, or dizziness. Objective Vitals Vital Signs Date Time Temp Pulse Resp B/P Pulse Ox O2 Delivery O2 Flow Rate FiO2 03/31/16 07:19 98.1 70 18 134/71 99 03/31/16 06:17 98 03/31/16 04:24 68 03/31/16 03:35 98.0 70 18 153/79 98 03/30/16 21:17 82 20 141/86 97 Room Air 03/30/16 19:15 16 03/30/16 19:05 95 18 125/91 95 Room Air 03/30/16 17:04 92 20 132/77 98 Room Air 03/30/16 13:47 95 21 03/30/16 11:34 71 20 131/76 100 Result Diagram: 03/31/16 0451 03/31/16 0407 Imaging Last Impressions Chest X-Ray 03/30/16 1132 Signed Impressions: Service Date/Time: Wednesday, March 30, 2016 11:43 - CONCLUSION: 1. Cardiomegaly with previous CABG. 2. Left-sided defibrillator. Denzel Shields MD Objective Remarks GENERAL: Well-developed well-nourished unkempt. In no acute distress. SKIN: Warm and dry. No lesions noted. HEENT: Normocephalic. Pupils equal and round. Mucous membranes pink and moist. CARDIOVASCULAR: Regular rate and rhythm. No murmur appreciated. RESPIRATORY: No accessory muscle use. Clear to auscultation. Breath sounds equal bilaterally. GASTROINTESTINAL: Abdomen soft, non-tender, nondistended. Bowel sounds x4. MUSCULOSKELETAL: No obvious deformities. No clubbing or cyanosis. No edema. NEUROLOGICAL: Awake and alert. No focal neurological deficits. Moves upper and lower extremities spontaneously. Normal speech. PSYCHIATRIC: Agitated mood and affect; insight and judgment normal. A/P Assessment and Plan 51-year-old male with past medical history of CAD, CHF, alcohol abuse, GERD, depression, HTN, HLD who presented with chest pain Atypical chest pain with history of CAD: Troponin minimally elevated at 0.09, 0.09, and 0.10; previously 0.11 on 03/29/16. Possibly minimally elevated secondary to CHF, but will need to trend cardiac enzymes to rule out ACS. Doubt true ACS with constant chest pain lasting more than 5 days. Check echocardiogram. Obtain results of recent stress test, if unable to obtain results we'll proceed with repeat stress testing. Cardiology consult. If ACS is ruled out and stress test is negative, ideally the patient needs optimization of antianginal therapy, cannot take nitroglycerin. Continue metoprolol and statin. Added amlodipine. Morphine as needed. Continue aspirin and Plavix. Chronic systolic heart failure: EF 20% on catheterization in 2013. S/P AICD placement. Continue metoprolol and lisinopril. NSVT: S/P pacemaker placement. Pacemaker interrogated, patient had 30 to 40 second episode of V. tach rate 170s. Continue amiodarone and metoprolol. Consult cardiology. Keep Mg >= 2.0 and K around 4.0. Alcohol abuse: Patient counseled. Requesting Librium, will schedule low-dose. CIWA protocol. Rally pack. performing arts road manager consult for outpatient resources for detox. Tobacco abuse: Patient counseled. Noncompliance: Multiple admissions for similar complaints with history of previous medical advice. Patient currently refuses adjustment of AICD shock threshold. DVT prophylaxis: SCDs GI prophylaxis: PPI Written by Parmjit Lara, acting as scribe for Dr. Payne on 03/31/16 at 10:43. The documentation accurately reflects the work performed [id number] by me on at 1043. Parmjit Lara Mar 31, 2016 10:44 am Kamilla Payne DO Mar 31, 2016 6:16 pm
--- NOTE | 2016-03-31 11:26 | EKG ---
Date Performed: 03/30/2016 Time Performed: 11:35:12 PTAGE: 51 years EKG: Sinus rhythm MARKED LEFT AXIS DEVIATION INTRAVENTRICULAR CONDUCTION DELAY LEFT VENTRICULAR HYPERTROPHY AND ST-T C HANGE LATERAL MYOCARDIAL INFARCTION ABNORMAL ECG NO PREVIOUS TRACING DOCTOR: Pedro Ramos Interpretating Date/Time 03/31/2016 11:25:35
[2016-03-31] MEDS: ENOXAPARIN SODIUM 40 MG/0.4 ML SYRINGE SQ SCH (12:48)
--- NOTE | 2016-03-31 17:10 | MB ---
cc: JANETTE BREWER DATE OF CONSULTATION: 03/31/2016 DATE OF : 1965 REASON FOR CONSULTATION Chest pain. HISTORY OF PRESENT ILLNESS 51-year-old male with a past medical history significant for severe noncompliance issues, coronary artery disease status post bypass surgery, LV systolic dysfunction status post AICD, alcohol abuse, depression, hypertension, hyperlipidemia who presented to the hospital with chest pain. The patient had a similar episode during the last month however he always leaves against medical advice. He reports having episodes of chest pressure, the pain is dull , it radiates to the neck and left arm and associated with nausea and sweats. He reports being compliant with medications however he states that yesterday he lost all his medications. The patient has been admitted to the hospital for chest pain evaluation. Of note, the patient had an episode of nonsustained V- tach here in the hospital and his AICD settings where changed, the AICD did not fire. Currently he denies chest pain, shortness of breath, palpitations, syncope, lightheadedness, PND, orthopnea, leg edema, nausea, vomiting, or diarrhea. REVIEW OF SYSTEMS Negative except for what is mentioned in the HPI. PAST MEDICAL HISTORY 1. Coronary artery disease status post bypass surgery. 2. Chronic systolic heart failure. 3. Alcohol abuse. 4. GERD. 5. Depression. 6. Hypertension. 7. Hyperlipidemia. 8. Arthritis. PAST SURGICAL HISTORY 1. CABG. 2. Appendectomy. 3. AICD. 4. Tonsillectomy. 5. Right knee surgery. HOME MEDICATIONS 1. Lisinopril 5 mg p.o. daily. 2. Amiodarone 200 mg p.o. daily. 3. Lipitor 10 mg p.o. daily. 4. Metoprolol 100 mg p.o. b.i.d. ALLERGIES NITROGLYCERIN. FAMILY HISTORY Father from a heart attack, mother from cancer. SOCIAL HISTORY He drinks daily. He is a smoker. He denies illicit drug use. He is homeless. PHYSICAL EXAMINATION VITAL SIGNS: Temperature 97.9, respiratory rate 16, heart rate 65, blood pressure 136/84, O2 sat 96% on room air. GENERAL: He is awake, alert, oriented x3, sleeping in bed. NECK: No JVD. No carotid bruits. HEART: Normal S1, S2. Regular rate and rhythm. No murmurs, rubs, or gallops. LUNGS: Clear to auscultation bilaterally. No wheezes, no rhonchi, no rales. ABDOMEN: Obese. Positive bowel sounds. Soft, nontender, nondistended. EXTREMITIES: No cyanosis or edema. Pulses throughout. DATA CBC: Hemoglobin 13, hematocrit 39, platelet count 179. INR is 0.9. Chemistries: Sodium 140, potassium 4.1, BUN 8, creatinine 0.81. Troponin's: 0.09, 0.09, 0.10. EKG: Normal sinus rhythm. IMAGING Chest x-ray: No acute cardiopulmonary process. The patient had a cath in 2013 showing an ejection fraction of 20%, 80% lesion in the left main and total occlusion of the LAD and circumflex vessels. ASSESSMENT AND PLAN 51-year-old male with severe noncompliance issues, alcoholic with heart disease. He continues to be extremely noncompliant. His AICD was interrogated, no recordings of shock, there is a recording of an unsustained VT and the device was reprogrammed. Regarding his chest pain, his troponins have remained flat, actually they are lower than on previous admission. I do not think it is safe to do a cath on him given his noncompliance. In the meantime, continue aggressive medical management of coronary artery disease. Optimize his beta-blockers. KRISTA inhibitors as tolerated by blood pressure and heart rates. Start a long-acting nitrate. The patient had a recent stress test, apparently done in [place], we should get the results of those tests. In the event that we do not get them we can consider doing a Lexiscan stress test to further assess progression of coronary arteries. Thank you for the opportunity to take part in the care of this patient. Further therapy to be determined. We will be available on a p.r.n. basis for further questions or concerns. MD DOMINIK Nesbitt/NEFTALY /4:04 PM /4:30 PM NIECY
--- NOTE | 2016-03-31 17:32 | EC ---
Study Study Date:03/31/2016 STUDY CONCLUSIONS SUMMARY - Left ventricle: The cavity size was normal. Wall thickness was normal. Systolic function was mildly reduced. The estimated ejection fraction was in the range of 45% to 50%. Wall motion was normal; there were no regional wall motion abnormalities. - Aortic valve: Valve area: 2.65cm^2 (Vmax). - Mitral valve: Mild regurgitation. If LV function is below 40, please consider prescribing an ACEI or ARB or document rationale for non-use. PROCEDURE DATA STUDY STATUS: Elective. Procedure: Transthoracic echocardiography. Image quality was good. Scanning was performed from the parasternal, apical, and subcostal acoustic windows. Study completion: The patient tolerated the procedure well. Transthoracic echocardiography. M-mode, complete 2D, complete spectral Doppler, and color Doppler. Height: Height: 71in. Weight: Weight: 263.5lb. Body mass index: BMI: 36.8kg/m^2. Body surface area: BSA: 2.37m^2. Patient status: Inpatient. CARDIAC ANATOMY LEFT VENTRICLE: The cavity size was normal. Wall thickness was normal. Systolic function was mildly reduced. The estimated ejection fraction was in the range of 45% to 50%. Wall motion was normal; there were no regional wall motion abnormalities. AORTIC VALVE: Trileaflet; normal thickness leaflets. Doppler: Transvalvular velocity was within the normal range. There was no stenosis. No regurgitation. Valve area: 2.65cm^2 (Vmax). Indexed valve area: 1.12cm^2/m^2 (Vmax). AORTA: Aortic root: The aortic root was normal in size. MITRAL VALVE: Structurally normal valve. Doppler: Transvalvular velocity was within the normal range. There was no evidence for stenosis. Mild regurgitation. Peak gradient: 3mm Hg (D). LEFT ATRIUM: The atrium was normal in size. RIGHT VENTRICLE: The cavity size was normal. Wall thickness was normal. Pacer wire or catheter noted in right ventricle. PULMONIC VALVE: Doppler: Transvalvular velocity was within the normal range. There was no evidence for stenosis. No regurgitation. TRICUSPID VALVE: Structurally normal valve. Doppler: Transvalvular velocity was within the normal range. No regurgitation. PULMONARY ARTERY: The main pulmonary artery was normal-sized. Systolic pressure was within the normal range. RIGHT ATRIUM: The atrium was normal in size. PERICARDIUM: There was no pericardial effusion. SYSTEMIC VEINS: Inferior vena cava: The vessel was normal in size. Patient weight: 263.5lb _Ejection fraction:_ 65-75% _Fractional shortening:_ 32% up to 5Kg 5-11.5Kg 11.6-22.9Kg 23-45Kg 45-57Kg Aortic Root 7-13 <17 13-22 17-27 17-27 LA diam 6-13 <23 24-38 33-47 37-40 RVID 10-17 7-15 7-15 7-18 8-17 LVIDd 12-22 <32 24-38 33-47 37-40 LVPW 2-4 3-6 5-7 6-8 7-8 IVS 2-4 3-6 5-7 6-8 7-8 BASIC MEASUREMENTS ADULT NORMAL Left ventricle LV internal dimension, ED, chordal 50.7 mm 43-52 level, PLAX LV internal dimension, ES, chordal *41.2 mm 23-38 level, PLAX Fractional shortening, chordal level, *19 % >29 PLAX LV posterior wall thickness, ED 8.7 mm IVS/LVPW ratio, ED 0.99 <1.3 Ventricular septum Septal thickness, ED 8.6 mm Aortic valve Leaflet separation 21 mm 15-26 BASIC MEASUREMENTS ADULT NORMAL Aortic valve Leaflet separation 21 mm 15-26 Aorta Root diameter, ED 28 mm 20-37 Left atrium Anterior-posterior dimension, ES *44 mm 19-40 Anterior-posterior dimension index, ES 1.86 cm/m^2 <2.2 LA/aortic root ratio 1.57 DOPPLER MEASUREMENTS ADULT NORMAL Main pulmonary artery Pressure, S 21 mm Hg =30 Aortic valve Peak velocity, S 136 cm/s Valve area, Vmax 2.65 cm^2 Valve area index, Vmax 1.12 cm^2/m^2 Mitral valve Peak E-wave velocity 88.4 cm/s Peak A-wave velocity 112 cm/s Deceleration time 225 ms 150-230 Peak gradient, D 3 mm Hg Peak E/A ratio 0.8 Tricuspid valve Regurgitant peak velocity 217 cm/s Peak RV-RA gradient, S 19 mm Hg Maximal regurgitant velocity 217 cm/s Systemic veins Estimated CVP 10 mm Hg Right ventricle RV pressure, S 29 mm Hg <30 Pulmonic valve Peak velocity, S 137 cm/s LEGEND: Mean values are shown as u=mean value. Asterisk (*) casillas values outside specified normal range. Prepared and signed by Anthony Dooley [id number]
[2016-03-31] MEDS: traZODone HCL 50 MG TAB PO SCH (18:57)
[2016-03-31] MEDS: ATORVASTATIN 10 MG TAB PO SCH (18:57)
[2016-04-01] MEDS: MORPHINE SULFATE 4 MG/ML INJ IV PUSH PRN (02:35)
[2016-04-01 06:16] VITALS: O2SAT 98
== END 2016-04-01 07:01 | disposition left against medical advice (07) ==
LOC: NEPC 10:41 → NEDA 13:03 → NEDH 17:58 → NEPFCDU 03-31 00:50
PROVIDERS: ADMIT Hospitalist; ATTEND Hospitalist
DX: R79.89 Other specified abnormal findings of blood chemistry (principal); R07.9 Chest pain, unspecified; I11.0 Hypertensive heart disease with heart failure; I50.22 Chronic systolic (congestive) heart failure; I25.10 Atherosclerotic heart disease of native coronary artery without angina pectoris; I47.2 Ventricular tachycardia; E78.00 Pure hypercholesterolemia, unspecified; F10.10 Alcohol abuse, uncomplicated; F17.210 Nicotine dependence, cigarettes, uncomplicated; Z95.0 Presence of cardiac pacemaker; Z95.1 Presence of aortocoronary bypass graft; Z95.5 Presence of coronary angioplasty implant and graft; Z79.01 Long term (current) use of anticoagulants; E78.5 Hyperlipidemia, unspecified; F32.9 Major depressive disorder, single episode, unspecified; M19.90 Unspecified osteoarthritis, unspecified site; Z82.49 Family history of ischemic heart disease and other diseases of the circulatory system; Z80.9 Family history of malignant neoplasm, unspecified
CPT/HCPCS: 71010; 80048; 80053; 80320; 82550; 82552; 83690; 83735; 84484; 85025; 85610; 85730; 93005; 93306; 99285; G0378; J1650; J2060; J2270; J7030